=== PATIENT | female | born 1965 | race Caucasian/White ===

== ENCOUNTER 2017-07-20 19:01 | Inpatient (IN) | payer OTHER, MEDICARE ==
[~2017-07-20] VITALS: Ht 167.6 cm; Wt 81.4 kg
[~2017-07-20 19:01] MED LIST: DEXAMETHASONE SOD PHOS 4 MG/ML VIAL IV ONE; LIDOCAINE HCL 1% PF 5 ML SYRINGE OTHER ONE; ONDANSETRON HCL 4 MG/2 ML VIAL IV ONE; PHENYLEPH/NS 1000 MCG/10 ML SYR IV ONE; PROPOFOL 200 MG/20 ML AMP IV ONE; ceFAZolin INJ 1,000 MG VIAL IV ONE; ePHEDrine/NS 25 MG/5 ML SYRINGE IV ONE
[2017-07-20 19:19] VITALS: BP 151/95; PULSE 86; RESP 18; TEMP 98.1; O2SAT 94; O2SAT 98
--- NOTE | 2017-07-20 19:36 | PD ---
HPI Chief Complaint: Fall Time Seen by Provider: 19:17 Travel History International Travel<30 days: No Contact w/Intl Traveler<30days: No Traveled to known affect area: No History of Present Illness HPI The patient is a 52 year old female who presents to the [facility] emergency department with a history of falling prior to arrival. The patient reports that this is the second day that she has fallen. 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 She reports that she normally ambulates with the use of a walker, however yesterday she did not have her walker and fell when she was near her vehicle. She reports that her legs just gave out on her. She reports that she fell backwards onto her bottom and then her back rolling and hitting the back of her head. She reports that she had a headache this morning, however it has resolved. She reports having neck pain. She denies having any chest pain or shortness of breath. The patient reports that today she again had her legs give out on her when she was walking to the bathroom. She reports that she was not using her walker again. She reports that she twisted her right ankle and now has deformity and pain. The patient also has left second toe pain. The patient reports that she was not able to ambulate on her ankle after the fall. According to ambulance services, the patient had a drop in her O2 saturation in route to this facility after having morphine for pain administered. The patient also began to feel nauseated was given Zofran 4 mg IV. In total the patient received morphine 6 mg IV. The patient reports the pain was a 7 out of 10 in severity initially and now is down to 1-2 out of 10 in severity. On review of systems otherwise, the patient denies having any new weakness to her extremities. She denies having any numbness or tingling to her extremities. She does report having neck pain since falling yesterday. The cervical collar was placed on the patient on her arrival to this facility. On review of systems otherwise, the patient denies having any recent fevers, cough, congestion, chest pain, shortness of breath, abdominal pain, vomiting, diarrhea, urinary symptoms, or new neurologic symptoms. LMP: Reportedly a few years ago. [facility] Past Medical History Narrative Medical The patient's past medical history is significant for having myotonic dystrophy , history of being prediabetic, history of cervical cancer. Diminished Hearing: No Musculoskeletal: Yes (MUSCULAR DYSTROPHY) Immunizations Current: Yes Tetanus Vaccination: > 5 Years ?: Not Menopausal: Yes Dilation and Curettage (D&C): Yes Past Surgical History Narrative Surgical The patient's past surgical history is significant for D&C, eyelid lift, cyst removal from her eye, cataract surgery, cervical surgery related to cervical cancer, appendectomy. Appendectomy: Yes Eye Surgery: Yes (CYSTS REMOVED FROM RT EYE THREE TIMES) Gynecologic Surgery: Yes (D&C) Social History Alcohol Use: No Tobacco Use: No Substance Use: No Allergies-Medications (Allergen,Severity, Reaction): Coded Allergies: No Known Allergies (Verified Allergy, Unknown, 07/20/17) Reported Meds & Prescriptions Reported Meds & Active Scripts Active No Active Prescriptions or Reported Medications Review of Systems Except as stated in HPI: all other systems reviewed are Neg General / Constitutional: No: Fever Eyes: No: Visual changes HENT: Positive: Headaches, Neck Pain, No: Rhinitis, Congestion, Neck Stiffness Cardiovascular: No: Chest Pain or Discomfort, Dyspnea on exertion Respiratory: No: Shortness of Breath Gastrointestinal: No: Abdominal Pain Genitourinary: No: Dysuria Musculoskeletal: Positive: Myalgias, Arthralgias, Limited ROM, Edema, Pain Skin: No Rash Neurologic: Positive: Headache, No: Weakness, Focal Abnormalities, Change in Mentation, Slurred Speech, Sensory Disturbance Psychiatric: No: Depression Endocrine: No: Polydipsia Hematologic/Lymphatic: No: Easy Bruising Physical Exam Narrative General: The patient is a well-developed well-nourished female in no acute distress. The patient on arrival on room air is noted to have desaturation down to 89-90% . The patient was placed on 2 L nasal cannula O2. The patient is asymptomatic with this. Head and Neck exam: Head is normocephalic atraumatic. Eyes: EOMI, pupils are equal round and reactive to light. Nose: Midline septum with pink mucous membranes Mouth: Dentition unremarkable. Moist mucus membranes. Posterior oropharynx is not erythematous. No tonsillar hypertrophy. Uvula midline. Airway patent. Neck: No palpable lymphadenopathy. No nuchal rigidity. No thyromegaly. The patient reports having spinous process tenderness to palpation along the mid cervical spine. The patient also has paraspinal cervical muscle tenderness on palpation. The patient's placed in a cervical collar. There is no step-off or crepitus. Trachea is midline. Cardiovascular: Regular rate and rhythm without murmurs, gallops, or rubs. Lungs: Clear to auscultation bilaterally. No wheezes, rhonchi, or rales. Abdomen: Soft, without tenderness to palpation in all 4 quadrants of the abdomen. No guarding, rebound, or rigidity. Normal bowel sounds are audible. No tenderness on palpation of McBurney's point. Extremities: No clubbing or cyanosis. The patient does have edema noted to the right ankle with tenderness on palpation is most prominent along the medial aspect of the ankle and medial malleolus. The patient also has tenderness on palpation along the mid foot over the metatarsals. The patient on examination of the left foot is noted to have ecchymosis of the second toe. There is tenderness on palpation associated with this. 2+ pulses in all 4 extremities. The patient has less than 3 second capillary refill of her digits. Intact sensation over her toes. Back: No spinous process tenderness to palpation. The patient reports left-sided CVA tenderness on palpation. Neurologic Exam: Grossly nonfocal. Skin Exam: No rash noted. Intact skin that is warm and dry. Data Data Last Documented VS Vital Signs Date Time Temp Pulse Resp B/P (MAP) Pulse Ox O2 Delivery O2 Flow Rate FiO2 07/20/17 19:19 98.1 86 18 151/95 (113) 94 Nasal Cannula 2.00 Orders Orders Electrocardiogram (07/20/17 19:28) Complete Blood Count With Diff (07/20/17 19:28) Comprehensive Metabolic Panel (07/20/17 19:28) Creatine Kinase (Cpk) (07/20/17 19:28) Ckmb (Isoenzyme) Profile (07/20/17 19:28) Troponin I (07/20/17 19:28) B-Type Natriuretic Peptide (07/20/17 19:28) Prothrombin Time / Inr (Pt) (07/20/17 19:28) Act Partial Throm Time (Ptt) (07/20/17 19:28) Lipase (07/20/17 19:28) Urinalysis - C+S If Indicated (07/20/17 19:28) Magnesium (Mg) (07/20/17 19:28) Chest, Single Ap (07/20/17 19:28) Ct Brain W/O Iv Contrast(Rout) (07/20/17 19:28) Pelvis, Ap Only (Routine) (07/20/17 19:28) Iv Access Insert/Monitor (07/20/17 19:28) Ecg Monitoring (07/20/17 19:28) Oximetry (07/20/17 19:28) Ankle, Complete ([id number]) (07/20/17 19:28) Foot, Limited (2vws) (07/20/17 19:28) Foot, Complete ([id number]) (07/20/17 19:28) Ct Cerv Spine W/O Contrast (07/20/17 19:28) Ct Pulmonary Angiogram (07/20/17 19:28) CKMB (07/20/17 19:45) CKMB% (07/20/17 19:45) Splint Or Brace Apply/Monitor (07/20/17 21:04) Iohexol 350 Inj (Omnipaque 350 Inj) (07/20/17 21:55) Admit Order (Ed Use Only) (07/20/17 22:05) Labs Laboratory Tests Test 07/20/17 19:45 White Blood Count 11.1 TH/MM3 Red Blood Count 4.98 MIL/MM3 Hemoglobin 15.7 GM/DL Hematocrit 47.0 % Mean Corpuscular Volume 94.5 FL Mean Corpuscular Hemoglobin 31.6 PG Mean Corpuscular Hemoglobin Concent 33.4 % Red Cell Distribution Width 13.5 % Platelet Count 254 TH/MM3 Mean Platelet Volume 7.3 FL Neutrophils (%) (Auto) 77.6 % Lymphocytes (%) (Auto) 14.1 % Monocytes (%) (Auto) 6.9 % Eosinophils (%) (Auto) 1.0 % Basophils (%) (Auto) 0.4 % Neutrophils # (Auto) 8.6 TH/MM3 Lymphocytes # (Auto) 1.6 TH/MM3 Monocytes # (Auto) 0.8 TH/MM3 Eosinophils # (Auto) 0.1 TH/MM3 Basophils # (Auto) 0.0 TH/MM3 CBC Comment DIFF FINAL Differential Comment Prothrombin Time 10.2 SEC Prothromb Time International Ratio 1.0 RATIO Activated Partial Thromboplast Time 22.4 SEC Urine Color LIGHT-YELLOW Urine Turbidity CLEAR Urine pH 6.5 Urine Specific [place] 1.007 Urine Protein NEG mg/dL Urine Glucose (UA) NEG mg/dL Urine Ketones NEG mg/dL Urine Occult Blood NEG Urine Nitrite NEG Urine Bilirubin NEG Urine Urobilinogen LESS THAN 2.0 MG/DL Urine Leukocyte Esterase TRACE Urine RBC LESS THAN 1 /hpf Urine WBC 3 /hpf Urine Mucus FEW /lpf Microscopic Urinalysis Comment CULT NOT INDICATED Blood Urea Nitrogen 13 MG/DL Creatinine 0.90 MG/DL Random Glucose 127 MG/DL Total Protein 7.2 GM/DL Albumin 3.5 GM/DL Calcium Level 9.0 MG/DL Magnesium Level 2.3 MG/DL Alkaline Phosphatase 139 U/L Aspartate Amino Transf (AST/SGOT) 53 U/L Alanine Aminotransferase (ALT/SGPT) 78 U/L Total Bilirubin 0.4 MG/DL Sodium Level 144 MEQ/L Potassium Level 4.3 MEQ/L Chloride Level 113 MEQ/L Carbon Dioxide Level 21.8 MEQ/L Anion Gap 9 MEQ/L Estimat Glomerular Filtration Rate 66 ML/MIN Total Creatine Kinase 122 U/L Creatine Kinase MB 6.0 NG/ML Troponin I LESS THAN 0.02 NG/ML B-Type Natriuretic Peptide 12 PG/ML Lipase 132 U/L [facility] Medical Decision Making Medical Screen Exam Complete: Yes Emergency Medical Condition: Yes Medical Record Reviewed: Yes Interpretation(s) Last Impressions Pelvis X-Ray 07/20/171927 Signed Impressions: Service Date/Time: June 19:56 - CONCLUSION: Unremarkable examination of the pelvis. Renato De Jesus MD Head CT 07/20/171927 Signed Impressions: Service Date/Time: June 21:41 - CONCLUSION: No acute intracranial injury Renato De Jesus MD Foot X-Ray 07/20/171927 Signed Impressions: Service Date/Time: June 20:04 - CONCLUSION: Ankle fracture. No evidence of acute bony injury in the foot Renato De Jesus MD Foot X-Ray 07/20/171927 Signed Impressions: Service Date/Time: June 20:04 - CONCLUSION: Left third through fifth toe fractures as described. Renato De Jesus MD Chest X-Ray 07/20/171927 Signed Impressions: Service Date/Time: June 19:54 - CONCLUSION: Diminished lung volumes. Renato De Jesus MD Cervical Spine CT 07/20/171927 Signed Impressions: Service Date/Time: June 21:41 - CONCLUSION: No acute bony injury in the cervical spine. Renato De Jesus MD CT Angiography 07/20/171927 Signed Impressions: Service Date/Time: June 21:45 - CONCLUSION: No evidence of pulmonary embolism Renato De Jesus MD Ankle X-Ray 07/20/171927 Signed Impressions: Service Date/Time: June 20:01 - CONCLUSION: Mildly displaced trimalleolar right ankle fracture Renato De Jesus MD Differential Diagnosis Intracranial hemorrhage, versus cervical spine injury, versus right ankle fracture, versus sprain, versus dislocation. Regarding the patient's hypoxemia on room air, differential diagnosis includes respiratory depression related to morphine use, versus pulmonary embolism, versus acute coronary syndrome, versus pneumonia, versus new-onset congestive heart failure Narrative Course During the course of the patients emergency department visit, the patients history, examination, and differential diagnosis were reviewed with the patient. The patient was placed on a hemodialysis rn with oximetry and frequent blood pressure monitoring. The patient had IV access obtained and blood work sent for analysis. The patient had an ECG done on arrival. The patient's ECG reveals a sinus rhythm heart rate of 86, no acute ST segment elevation, T waves are inverted in V1, V2. QRS duration is 95 ms, QTC 423 ms. The patient was provided morphine in total 6 mg IV for pain prior to arrival, pain level was minimal on arrival. The patients laboratory studies were reviewed and remarkable for a white count of 11.1, hemoglobin 15.7, platelets 254 with 77.6 neutrophils, CMP is remarkable for chloride of 113, glucose 127, AST 53, ALT 78, alkaline phosphatase 139, CPK 122, troponin I less than 0.02, BNP 12, lipase 132. PT 10.2, PTT 22.4, urinalysis shows trace of the site esterase, culture not indicated. Radiology studies were reviewed and remarkable for an x-ray of the left foot that showed left third through fifth toe digit fractures, right ankle x-ray reveals a trimalleolar fracture. A chest x-ray showed diminished lung volumes, otherwise unremarkable. Pelvis x-ray showed no acute abnormality. CTA to rule out PE given the patient's hypoxemia on room air on arrival was negative for pulmonary embolism. CT scan of the head and C-spine shows no acute abnormality. Given the patient's negative CTA with the patient's hypoxemia on room air, the patient's hypoxemia is likely related to respiratory depression from morphine administration prior to arrival with a possible component of decreased respiratory effort from myotonic dystrophy. The patients results were discussed with the patient, including the plan of care. I explained that further testing and/ or monitoring is indicated based on the patients history, examination, and/ or laboratory findings. Therefore, I recommended admission for additional evaluation. The patient expressed understanding and was agreeable with this plan. The patient was admitted to the hospital in stable condition and sent to a bed under the care of the [facility] service. Physician Communication Physician Communication The patient's case including history, pertinent physical examination findings, and laboratory studies were discussed with Dr. Loja. It was agreed that the patient would be admitted to the [facility] service. Diagnosis Primary Impression: Closed right trimalleolar fracture Qualified Codes: S82.851A - Displaced trimalleolar fracture of right lower leg , initial encounter for closed fracture Additional Impression: Toes fractured Qualified Codes: S92.912A - Unspecified fracture of left toe(s), initial encounter for closed fracture Admitting Information Admitting Physician Requests: Admit Scripts No Active Prescriptions or Reported Meds Disposition: [address] [facility] ENFORCEM[employer] Neda Chandra MD Jul 20, 2017 19:36
[2017-07-20 20:05] LABS: AUTOMATED NEUTROPHIL # 8.6 TH/MM3 (1.8-7.7); BASOPHIL % 0.4 % (0.0-2.0); EOSINOPHIL # 0.1 TH/MM3 (0-0.4); HEMOGLOBIN 15.7 GM/DL (11.6-15.3); LYMPH % 14.1 % (9.0-44.0); LYMPHOCYTE # 1.6 TH/MM3 (1.0-4.8); MEAN CELL VOLUME 94.5 FL (80.0-100.0); MEAN CORPUSCULAR HEMOGLOBIN 31.6 PG (27.0-34.0); MEAN CORPUSCULAR HGB CONC 33.4 % (32.0-36.0); MEAN PLATELET VOLUME 7.3 FL (7.0-11.0); MONO % 6.9 % (0.0-8.0); MONOCYTE # 0.8 TH/MM3 (0-0.9); NEUT % 77.6 % (16.0-70.0); PLATELET COUNT 254 TH/MM3 (150-450); RED BLOOD COUNT 4.98 MIL/MM3 (4.00-5.30); RED CELL DISTRIBUTION WIDTH 13.5 % (11.6-17.2); WHITE BLOOD COUNT 11.1 TH/MM3 (4.0-11.0)
[2017-07-20 20:13] LABS: PROTHROMBIN TIME - PATIENT 10.2 SEC (9.8-11.6)
[2017-07-20 20:25] LABS: ALT (GPT) 78 U/L (10-53)
[2017-07-20 20:29] LABS: ALKALINE PHOSPHATASE 139 U/L (45-117); TOTAL BILIRUBIN ADULT 0.4 MG/DL (0.2-1.0); TOTAL PROTEIN 7.2 GM/DL (6.4-8.2); TROPONIN I LESS THAN 0.02 NG/ML (0.02-0.05)
--- NOTE | 2017-07-20 20:29 | RADRPT ---
EXAM DATE/TIME: 07/20/2017 19:54 [facility] COMPARISON: CHEST SINGLE AP, March 29, 2012, 15:21. INDICATIONS : Evaluate chest for trauma, fell MEDICAL HISTORY : None. SURGICAL HISTORY : None. ENCOUNTER: Initial ACUITY: 1 day PAIN SCORE: 0/10 LOCATION: chest FINDINGS: Lung volumes are diminished. There is mild basilar parenchymal opacity may be atelectasis. No evidenc e of pneumothorax. Visualized cardiac contours are satisfactory. CONCLUSION: Diminished lung volumes. Renato De Jesus MD on July 20, 2017 at 20:26 Board Certified Radiologist. This report was verified electronically.
[2017-07-20 20:30] LABS: ALBUMIN 3.5 GM/DL (3.4-5.0); AST (GOT) 53 U/L (15-37); BICARBONATE 21.8 MEQ/L (21.0-32.0); BLOOD UREA NITROGEN 13 MG/DL (7-18); CHLORIDE 113 MEQ/L (98-107); GLOMERULAR FILTRATION RATE 66 ML/MIN (>89); GLUCOSE,RANDOM 127 MG/DL (74-106); LIPASE 132 U/L (73-393); MAGNESIUM 2.3 MG/DL (1.5-2.5); SODIUM (NA) 144 MEQ/L (136-145)
--- NOTE | 2017-07-20 20:36 | RADRPT ---
EXAM DATE/TIME: 07/20/2017 19:56 [facility] COMPARISON: No previous studies available for comparison. INDICATIONS : Evaluate for trauma, fell MEDICAL HISTORY : None. SURGICAL HISTORY : None. ENCOUNTER: Initial ACUITY: 1 day PAIN SCORE: 0/10 LOCATION: Pelvis FINDINGS: A single frontal view of the pelvis demonstrates no evidence of fracture. The bony pelvic ring is in tact. Bony mineralization is normal. The soft tissues are intact. CONCLUSION: Unremarkable examination of the pelvis. Renato De Jesus MD on July 20, 2017 at 20:34 Board Certified Radiologist. This report was verified electronically.
--- NOTE | 2017-07-20 20:39 | RADRPT ---
EXAM DATE/TIME: 07/20/2017 20:01 [facility] COMPARISON: No previous studies available for comparison. INDICATIONS : Right ankle pain, fell MEDICAL HISTORY : Arthritis. SURGICAL HISTORY : None. ENCOUNTER: Initial ACUITY: 1 day PAIN SCORE: 8/10 LOCATION: Right Ankle FINDINGS: Trimalleolar right ankle fracture is present with minimally displaced fractures of the medial and pos terior malleolar and an oblique fracture of the distal fibula extending down to the distal tibiofibul ar joint. There slight widening of the medial ankle mortise. The hindfoot is grossly intact. CONCLUSION: Mildly displaced trimalleolar right ankle fracture Renato De Jesus MD on July 20, 2017 at 20:36 Board Certified Radiologist. This report was verified electronically.
--- NOTE | 2017-07-20 20:40 | RADRPT ---
EXAM DATE/TIME: 07/20/2017 20:04 [facility] COMPARISON: No previous studies available for comparison. INDICATIONS : Right proximal foot pain, fell MEDICAL HISTORY : Arthritis. SURGICAL HISTORY : None. ENCOUNTER: Initial ACUITY: 1 day PAIN SCORE: 08/02 LOCATION: Right Foot FINDINGS: Three view examination of the right foot demonstrates no soft tissue swelling, dislocation, or fractu re. The tarsal bones appear intact. The interphalangeal and metatarsophalangeal joints are intact. The calcaneus is intact. Bony mineralization is normal. Trimalleolar right ankle fracture is noted . CONCLUSION: Ankle fracture. No evidence of acute bony injury in the foot Renato De Jesus MD on July 20, 2017 at 20:37 Board Certified Radiologist. This report was verified electronically.
--- NOTE | 2017-07-20 20:42 | RADRPT ---
EXAM DATE/TIME: 07/20/2017 20:04 [facility] COMPARISON: No previous studies available for comparison. INDICATIONS : Left distal foot pain, fell MEDICAL HISTORY : Arthritis. SURGICAL HISTORY : None. ENCOUNTER: Initial ACUITY: 1 day PAIN SCORE: 4/10 LOCATION: Left Foot FINDINGS: There are mildly angulated transverse fractures involving the proximal aspect of the fourth and fifth toe proximal phalanges with slight lateral angulation of the dominant distal fragments. The fracture involving the fifth toe appears to extend obliquely into the metatarsophalangeal joint. It appears t o be a minimally displaced fracture involving the distal aspect of the third toe proximal phalanx wit h cortical disruption seen laterally in the metaphyseal region. There is mild osteoporosis and degene rative change. CONCLUSION: Left third through fifth toe fractures as described. Renato De Jesus MD on July 20, 2017 at 20:38 Board Certified Radiologist. This report was verified electronically.
[2017-07-20 20:45] LABS: BILIRUBIN, URINE NEG (NEG); BLOOD, URINE NEG (NEG); GLUCOSE,URINE NEG (NEG); KETONE, URINE NEG (NEG); MUCUS URINE FEW /lpf (OCC); NITRITE,URINE NEG (NEG); PH, URINE 6.5 (5.0-8.5); URINE COLOR LIGHT-YELLOW (YELLW/STRAW); URINE LEUKOCYTE ESTERASE TRACE (NEG)
[2017-07-20] MEDS ORDERED: IOHEXOL 350 MG/ML 10 ML VIAL (for RAD DIAG) IVCONTRAST ONE (21:55)
--- NOTE | 2017-07-20 22:08 | RADRPT ---
EXAM DATE/TIME: 07/20/2017 21:45 [facility] COMPARISON: CHEST SINGLE AP, July 20, 2017, 19:54. INDICATIONS : Trauma, fall. Low O2 sats. IV CONTRAST: 75 cc Omnipaque 350 (iohexol) IV RADIATION DOSE: 22.47 CTDIvol (mGy) MEDICAL HISTORY : Musuclar dystrophy. SURGICAL HISTORY : None. ENCOUNTER: Initial ACUITY: 1 day PAIN SCALE: 5/10 LOCATION: chest TECHNIQUE: Volumetric scanning of the chest was performed using a pulmonary embolism protocol MIP images were re constructed. Using automated exposure control and adjustment of the mA and/or kV according to patien t size, radiation dose was kept as low as reasonably achievable to obtain optimal diagnostic quality images. DICOM format image data is available electronically for review and comparison. Follow-up recommendations for detected pulmonary nodules are based at a minimum on nodule size and pa tient risk factors according to Fleischner Society Guidelines. FINDINGS: PULMONARY ARTERIES: No filling defects are seen in the pulmonary arteries through the segmental level. LUNGS: Mild bibasilar atelectasis. Symmetrically diminished lung volumes. PLEURAE: There is no pleural thickening or pleural effusion. MEDIASTINUM: There is good visualization of the great vessels of the middle mediastinum. No evidence of mediastin al or hilar adenopathy/mass. MUSCULOSKELETAL: Within normal limits for patient age. MISCELLANEOUS: The visualized upper abdominal organs demonstrate no acute abnormality. CONCLUSION: No evidence of pulmonary embolism Renato De Jesus MD on July 20, 2017 at 22:04 Board Certified Radiologist. This report was verified electronically.
--- NOTE | 2017-07-20 22:21 | RADRPT ---
EXAM DATE/TIME: 07/20/2017 21:41 [facility] COMPARISON: No previous studies available for comparison. INDICATIONS : Trauma, fall. RADIATION DOSE: 54.89 CTDIvol (mGy) ; Tabletop CT Head MEDICAL HISTORY : Muscular dytrophy. SURGICAL HISTORY : None. ENCOUNTER: Initial ACUITY: 1 day PAIN SCALE: 0/10 LOCATION: cranial TECHNIQUE: Multiple contiguous axial images were obtained of the head. Using automated exposure control and adj ustment of the mA and/or kV according to patient size, radiation dose was kept as low as reasonably a chievable to obtain optimal diagnostic quality images. DICOM format image data is available electro nically for review and comparison. FINDINGS: CEREBRUM: The ventricles are normal for age. No evidence of midline shift, mass lesion, hemorrhage or acute in farction. No extra-axial fluid collections are seen. POSTERIOR FOSSA: The cerebellum and brainstem are intact. The 4th ventricle is midline. The cerebellopontine angle i s unremarkable. EXTRACRANIAL: The visualized portion of the orbits is intact. SKULL: The calvaria is intact. No evidence of skull fracture. CONCLUSION: No acute intracranial injury Renato De Jesus MD on July 20, 2017 at 22:19 Board Certified Radiologist. This report was verified electronically.
--- NOTE | 2017-07-20 22:21 | HHI.HP ---
[facility] Unknown Admission Diagnosis right trimalleolar fx, left foot 3-5th digit fxs Diagnoses: (1) Fall Diagnosis: Principal (2) Ankle fracture, right Diagnosis: Principal (3) Toes fractured Diagnosis: Principal (4) Muscular dystrophy Diagnosis: Principal (5) Leukocytosis Diagnosis: Principal Travel History International Travel<30 Days: No Contact w/Intl Traveler <30 Da: No Traveled to Known Affected Are: No History of Present Illness This is a 52-year-old female with a PMH of Muscular Dystrophy and Cervical CA who is brought to the ER by EMS secondary to right ankle pain after a fall. Pt states she was walking to the bathroom when her legs gave out, subsequent fall w / immediate complaints of right ankle pain, 8/10, constant, worse w/ movement. Also notes left toe pain. No head trauma or LOC reported. Normally ambulates with walker, however states she didn't use it this time. On arrival, BP 151/95 , HR 86, O2 sat 94% on 2L NC, Afebrile. WBC 11.1. GFR 66, previously 90 on 03/29. LFTs elevated, similar comparison to previous labs. Troponin negative. INR 1.0. UA negative. Ankle X-ray with mildly displaced trimalleolar right ankle fracture. CTA Pulm negative for PE. CT C-spine negative. CXR diminished lung volumes. Foot X-ray with left third through fifth toe fractures. Foot X-ray with ankle fracture. CT Head no acute findings. Pelvis X-ray unremarkable. Review of Systems Except as stated in HPI: all other systems reviewed are Neg ROS: 14 point review of systems otherwise negative. Past Family Social History Past Medical History PMH: Muscular Dystrophy and Cervical CA Past Surgical History PAST SURGICAL HISTORY: D&C, Cyst Removal Right Eye, Cataract Surgery, Appendectomy Allergies: Coded Allergies: No Known Allergies (Verified Allergy, Unknown, 07/20/17) Family History PAST FAMILY HISTORY: Reviewed. No h/o DM or CAD Social History PAST SOCIAL HISTORY: Negative for alcohol, tobacco or drugs. Physical Exam Vital Signs Vital Signs Date Time Temp Pulse Resp B/P (MAP) Pulse Ox O2 Delivery O2 Flow Rate FiO2 07/20/17 19:19 98.1 86 18 151/95 (113) 94 Nasal Cannula 2.00 Physical Exam PE: GENERAL: Pleasant middle-aged female in no acute distress. HEENT: PERRLA, EOMI. No scleral icterus or conjunctival pallor. No lid lag or facial droop. CARDIOVASCULAR: Regular rate and rhythm. No obvious murmurs to auscultation. No chest tenderness to palpation. RESPIRATORY: No obvious rhonchi or wheezing. Clear to auscultation. Breath sounds equal bilaterally. GASTROINTESTINAL: Abdomen soft, non-tender, nondistended. BS normal. MUSCULOSKELETAL: Extremities without clubbing, cyanosis, or edema. No obvious deformities. Decreased ROM of RLE due to injury. Left foot, +bruising second toe. Pulses intact NEUROLOGICAL: Awake, alert and oriented x4. No focal neurologic deficits. Moving both upper and lower extremities spontaneously. Laboratory Laboratory Tests Test 07/20/17 19:45 White Blood Count 11.1 Red Blood Count 4.98 Hemoglobin 15.7 Hematocrit 47.0 Mean Corpuscular Volume 94.5 Mean Corpuscular Hemoglobin 31.6 Mean Corpuscular Hemoglobin Concent 33.4 Red Cell Distribution Width 13.5 Platelet Count 254 Mean Platelet Volume 7.3 Neutrophils (%) (Auto) 77.6 Lymphocytes (%) (Auto) 14.1 Monocytes (%) (Auto) 6.9 Eosinophils (%) (Auto) 1.0 Basophils (%) (Auto) 0.4 Neutrophils # (Auto) 8.6 Lymphocytes # (Auto) 1.6 Monocytes # (Auto) 0.8 Eosinophils # (Auto) 0.1 Basophils # (Auto) 0.0 CBC Comment DIFF FINAL Differential Comment Prothrombin Time 10.2 Prothromb Time International Ratio 1.0 Activated Partial Thromboplast Time 22.4 Urine Color LIGHT-YELLOW Urine Turbidity CLEAR Urine pH 6.5 Urine Specific [place] 1.007 Urine Protein NEG Urine Glucose (UA) NEG Urine Ketones NEG Urine Occult Blood NEG Urine Nitrite NEG Urine Bilirubin NEG Urine Urobilinogen LESS THAN 2.0 Urine Leukocyte Esterase TRACE Urine RBC LESS THAN 1 Urine WBC 3 Urine Mucus FEW Microscopic Urinalysis Comment CULT NOT INDICATED Blood Urea Nitrogen 13 Creatinine 0.90 Random Glucose 127 Total Protein 7.2 Albumin 3.5 Calcium Level 9.0 Magnesium Level 2.3 Alkaline Phosphatase 139 Aspartate Amino Transf (AST/SGOT) 53 Alanine Aminotransferase (ALT/SGPT) 78 Total Bilirubin 0.4 Sodium Level 144 Potassium Level 4.3 Chloride Level 113 Carbon Dioxide Level 21.8 Anion Gap 9 Estimat Glomerular Filtration Rate 66 Total Creatine Kinase 122 Creatine Kinase MB 6.0 Troponin I LESS THAN 0.02 B-Type Natriuretic Peptide 12 Lipase 132 Result Diagram: 07/20/17194407/20/171944 Caprini VTE Risk Assessment Caprini VTE Risk Assessment: Mod/High Risk (score >= 2) Caprini Risk Assessment Model Point Value = 1 Point Value = 2 Point Value = 3 Point Value = 5 Age 41-60 Minor surgery BMI > 25 kg/m2 Swollen legs Varicose veins or History of unexplained or recurrent spontaneous Oral contraceptives or hormone replacement Sepsis (< 1 month) Serious lung disease, including pneumonia (< 1 month) Abnormal pulmonary function Acute myocardial infarction Congestive heart failure (< 1 month) History of inflammatory bowel disease Medical patient at bed rest Age 61-74 Arthroscopic surgery Major open surgery (> 45 min) Laparoscopic surgery (> 45 min) Malignancy Confined to bed (> 72 hours) Immobilizing plaster cast Central venous access Age >= 75 History of VTE Family history of VTE Factor V Leiden Prothrombin [id number] Lupus anticoagulant Anticardiolipin antibodies Elevated serum homocysteine Heparin-induced thrombocytopenia Other congenital or acquired thrombophilia Stroke (< 1 month) Elective arthroplasty Hip, pelvis, or leg fracture Acute spinal cord injury (< 1 month) Prophylaxis Regimen Total Risk Factor Score Risk Level Prophylaxis Regimen 0-1 Low Early ambulation 2 Moderate Order ONE of the following: *Sequential Compression Device (SCD) *Heparin 5000 units SQ BID 3-4 Higher Order ONE of the following medications: *Heparin 5000 units SQ TID *Enoxaparin/Lovenox 40 mg SQ daily (WT < 150 kg, CrCl > 30 mL/min) *Enoxaparin/Lovenox 30 mg SQ daily (WT < 150 kg, CrCl > 10-29 mL/min) *Enoxaparin/Lovenox 30 mg SQ BID (WT < 150 kg, CrCl > 30 mL/min) AND/OR *Sequential Compression Device (SCD) 5 or more Highest Order ONE of the following medications: *Heparin 5000 units SQ TID (Preferred with Epidurals) *Enoxaparin/Lovenox 40 mg SQ daily (WT < 150 kg, CrCl > 30 mL/min) *Enoxaparin/Lovenox 30 mg SQ daily (WT < 150 kg, CrCl > 10-29 mL/min) *Enoxaparin/Lovenox 30 mg SQ BID (WT < 150 kg, CrCl > 30 mL/min) AND *Sequential Compression Device (SCD) Assessment and Plan Problem List: (1) Fall ICD Code: W19.XXXA - Unspecified fall, initial encounter (2) Ankle fracture, right ICD Code: S82.891A - Other fracture of right lower leg, initial encounter for closed fracture (3) Toes fractured ICD Code: S92.919A - Unspecified fracture of unspecified toe(s), initial encounter for closed fracture (4) Muscular dystrophy ICD Code: G71.0 - Muscular dystrophy (5) Leukocytosis ICD Code: D72.829 - Elevated white blood cell count, unspecified Assessment and Plan A/P: 1. Fall: s/p mechanical fall while walking to bathroom, not using walker. No LOC or head trauma reported. CT Head/C-Spine w/ no acute findings, images reviewed by me. 2. Muscular Dystrophy: difficulty w/ ambulation, chronic, uses walker at baseline. Analgesics/antispasmodics as needed, PT for eval/tx. 3. Right Ankle Fx: secondary to fall. Foot x-ray w/ trimalleolar ankle fracture, images reviewed by me. Will Consult Ortho for further eval and surgical intervention. NPO, IVF, analgesics as needed. 4. Toe Fx: Left 3-5th toe fractures on X-ray, images reviewed by me. Ortho/ Podiatry eval. 5. DVT Prophylaxis: Anticoagulation post op 6. Social work for d/c planning as needed. 7. Labs/imaging reviewed by me, case discussed w/ ER physician at length. Physician Certification 2 Midnight Certification Type: Admission for Inpatient Services Order for Inpatient Services The services are ordered in accordance with Medicare regulations or non- Medicare payer requirements, as applicable. In the case of services not specified as inpatient-only, they are appropriately provided as inpatient services in accordance with the 2-midnight benchmark. Estimated LOS (days): 2 days is the estimated time the patient will need to remain in the hospital, assuming treatment plan goals are met and no additional complications. Post-Hospital Plan: Not yet determined Citlaly Loja MD Jul 20, 2017 22:21
--- NOTE | 2017-07-20 22:23 | RADRPT ---
EXAM DATE/TIME: 07/20/2017 21:41 [facility] COMPARISON: CT PULMONARY ANGIOGRAM, July 20, 2017, 21:45. INDICATIONS : Trauma, fall. RADIATION DOSE: 20.97 CTDIvol (mGy) MEDICAL HISTORY : Muscular dystrophy SURGICAL HISTORY : None. ENCOUNTER: Initial ACUITY: 1 day PAIN SCALE: 5/10 LOCATION: neck TECHNIQUE: Volumetric scanning of the cervical spine was performed. Multiplanar reconstructions i n the sagittal, coronal and oblique axial planes were performed. Using automated exposure control a nd adjustment of the mA and/or kV according to patient size, radiation dose was kept as low as reason ably achievable to obtain optimal diagnostic quality images. DICOM format image data is available e lectronically for review and comparison. FINDINGS: The alignment is normal. There is no evidence of cervical spine fracture. No bony canal or foraminal stenosis is identified. There is no evidence of paraspinal hematoma. CONCLUSION: No acute bony injury in the cervical spine. Renato De Jesus MD on July 20, 2017 at 22:19 Board Certified Radiologist. This report was verified electronically.
[2017-07-20] MEDS ORDERED: SENNOSIDES 8.6 MG TAB PO PRN (22:30)
[2017-07-20] MEDS ORDERED: BISACODYL 10 MG SUPP RECTAL PRN (22:30)
[2017-07-20] MEDS ORDERED: ONDANSETRON HCL 4 MG/2 ML VIAL IVP PRN (22:30)
[2017-07-20] MEDS ORDERED: MORPHINE SULFATE 2 MG/ML INJ IV PUSH PRN (22:30)
[2017-07-20] MEDS ORDERED: SODIUM CHLORIDE 0.9% FLUSH 10 ML FLUSH IV FLUSH PRN (22:30)
[2017-07-20] MEDS ORDERED: ACETAMINOPHEN 325 MG TAB PO PRN (22:30)
[2017-07-20] MEDS ORDERED: MAGNESIUM HYDROXIDE SUSP 30 ML CUP PO PRN (22:30)
[2017-07-20] MEDS ORDERED: LACTULOSE SYRUP 20 GM/30 ML CUP PO PRN (22:30)
[2017-07-20] MEDS: SODIUM CHLOR 0.9% 1000 ML INJ 1,000 ML IV SCH (22:49)
[2017-07-20] MEDS ORDERED: METOPROLOL TARTRATE 25 MG TAB PO PRN (23:15)
[2017-07-20] MEDS ORDERED: LACTATED RINGER'S 1000 ML IV PRN (23:15)
[2017-07-20] MEDS ORDERED: POVIDONE IODINE 5% (ANTISEPSIS KIT) 4 APPLICATIONS EACH NARE PRN (23:15)
[2017-07-20] MEDS ORDERED: CHLORHEXIDINE GLUCONATE 2 % 1 PACK (2 CLOTHS) TOPICAL PRN (23:15)
[2017-07-20] MEDS ORDERED: SODIUM CHLORID 0.9% 500 ML IV PRN (23:15)
[2017-07-20] MEDS: ACETAMINOPHEN/HYDROcodone 325 MG/5 MG TAB PO PRN (23:24)
[2017-07-21] VITALS (8 sets, daily range): BP systolic 103–139; BP diastolic 69–84; PULSE 70–93; RESP 16–20; TEMP 95.9–98; O2SAT 90–100
[2017-07-21] MEDS: ACETAMINOPHEN/HYDROcodone 325 MG/5 MG TAB PO PRN ×3 (04:08→11:59)
[2017-07-21 05:26] LABS: AUTOMATED NEUTROPHIL # 5.1 TH/MM3 (1.8-7.7); BASOPHIL % 0.5 % (0.0-2.0); EOSINOPHIL # 0.2 TH/MM3 (0-0.4); EOSINOPHIL % 1.8 % (0.0-4.0); HEMATOCRIT 43.9 % (35.0-46.0); HEMOGLOBIN 14.4 GM/DL (11.6-15.3); LYMPH % 28.7 % (9.0-44.0); LYMPHOCYTE # 2.4 TH/MM3 (1.0-4.8); MEAN CELL VOLUME 95.8 FL (80.0-100.0); MEAN CORPUSCULAR HEMOGLOBIN 31.3 PG (27.0-34.0); MEAN CORPUSCULAR HGB CONC 32.7 % (32.0-36.0); MEAN PLATELET VOLUME 7.4 FL (7.0-11.0); MONOCYTE # 0.8 TH/MM3 (0-0.9); PLATELET COUNT 237 TH/MM3 (150-450); RED BLOOD COUNT 4.59 MIL/MM3 (4.00-5.30); RED CELL DISTRIBUTION WIDTH 13.8 % (11.6-17.2); WHITE BLOOD COUNT 8.5 TH/MM3 (4.0-11.0)
[2017-07-21 05:44] LABS: ALBUMIN 3.3 GM/DL (3.4-5.0); ALT (GPT) 65 U/L (10-53); AST (GOT) 34 U/L (15-37); BICARBONATE 29.6 MEQ/L (21.0-32.0); BLOOD UREA NITROGEN 15 MG/DL (7-18); CALCIUM 8.7 MG/DL (8.5-10.1); CHLORIDE 110 MEQ/L (98-107); CREATININE 0.69 MG/DL (0.50-1.00); GLOMERULAR FILTRATION RATE 89 ML/MIN (>89); GLUCOSE,RANDOM 102 MG/DL (74-106); SODIUM (NA) 146 MEQ/L (136-145)
[2017-07-21 05:45] LABS: ALKALINE PHOSPHATASE 123 U/L (45-117); TOTAL BILIRUBIN ADULT 0.4 MG/DL (0.2-1.0); TOTAL PROTEIN 6.7 GM/DL (6.4-8.2)
[2017-07-21] MEDS: SODIUM CHLORIDE 0.9% FLUSH 10 ML FLUSH IV FLUSH SCH ×2 (07:36→21:00)
[2017-07-21] MEDS: SODIUM CHLOR 0.9% 1000 ML INJ 1,000 ML IV SCH (07:50)
--- NOTE | 2017-07-21 07:55 | PD.CONS ---
HPI Service Orthopedic Surgeons Consult Requested By Medical staff Reason for Consult Fracture of right ankle Primary Care Physician Unknown Admission Diagnosis right trimalleolar fx, left foot 3-5th digit fxs Diagnoses: (1) Fall (2) Ankle fracture, right (3) Toes fractured (4) Muscular dystrophy (5) Leukocytosis Chief Complaint: Right ankle pain and left forefoot pain History of Present Illness This patient is a 52-year-old female with a known history of myotonic muscular dystrophy. The patient normally endplates with a walker or a wheelchair. She fell in her bathroom at home. There was no loss of consciousness. She had immediate pain and deformity of the right ankle and pain in the forefoot of her left foot. She was brought by E back to [facility]. X-rays showed evidence of a mildly displaced right bimalleolar ankle fracture and evidence of left forefoot third fourth and fifth toe fractures. I have been asked to the patient in consultation regarding her orthopedic injuries. Past Family Social History Past Medical History PMH: Muscular Dystrophy and Cervical CA Past Surgical History PAST SURGICAL HISTORY: D&C, Cyst Removal Right Eye, Cataract Surgery, Appendectomy Allergies: Coded Allergies: No Known Allergies (Verified Allergy, Unknown, 07/20/17) Active Ordered Medications Current Medications Medications (Trade) Dose Ordered Sig/Eric Route Start Time Stop Time Status Last Admin Sodium Chloride 1,000 ml @ 100 mls/hr Q10H IV 07/20/17 22:19 07/21/17 07:50 (NS Flush) 2 ml UNSCH PRN IV FLUSH 07/20/17 22:30 (NS Flush) 2 ml BID IV FLUSH 07/21/17 09:00 (Zofran Inj) 4 mg Q6H PRN IVP 07/20/17 22:30 (Tylenol) 650 mg Q6H PRN PO 07/20/17 22:30 ([place] 5-325 Mg) 1 tab Q4H PRN PO 07/20/17 22:30 07/21/17 07:36 (Morphine Inj) 2 mg Q3H PRN IV PUSH 07/20/17 22:30 (Snehal-Colace) 1 tab BID PO 07/21/17 09:00 (Milk Of Magnesia Liq) 30 ml Q12H PRN PO 07/20/17 22:30 (Senokot) 17.2 mg Q12H PRN PO 07/20/17 22:30 (Dulcolax Supp) 10 mg DAILY PRN RECTAL 07/20/17 22:30 (Lactulose Liq) 30 ml DAILY PRN PO 07/20/17 22:30 Lactated Ringer's 1,000 ml @ 30 mls/hr Q24H PRN IV 07/20/17 23:15 07/23/17 23:14 Sodium Chloride 500 ml @ 30 mls/hr [id number] PRN IV 07/20/17 23:15 07/23/17 23:14 (Lopressor) 25 mg ENAMEL BUFFER PRN PO 07/20/17 23:15 07/23/17 23:14 (Betadine 5% Antisepsis Kit) 1 applic ENAMEL BUFFER PRN EACH NARE 07/20/17 23:15 07/23/17 23:14 (Chlorhexidine 2% Cloth) 3 pack ENAMEL BUFFER PRN TOPICAL 07/20/17 23:15 07/23/17 23:14 Reported Meds & Active Scripts Active No Active Prescriptions or Reported Medications Family History PAST FAMILY HISTORY: Reviewed. No h/o DM or CAD Social History PAST SOCIAL HISTORY: Negative for alcohol, tobacco or drugs. Physical Exam Vital Signs Vital Signs Date Time Temp Pulse Resp B/P (MAP) Pulse Ox O2 Delivery O2 Flow Rate FiO2 07/21/17 07:36 95.9 87 17 116/76 (89) 91 07/21/17 07:34 Nasal Cannula 2.00 07/21/17 04:00 96.3 70 16 103/71 (82) 95 07/21/17 00:00 97.1 82 18 139/84 (102) 96 07/20/17 23:26 96 Nasal Cannula 2.00 07/20/17 22:52 07/20/17 19:19 98.1 86 18 151/95 (113) 94 Nasal Cannula 2.00 Physical Exam HEENT: Normocephalic atraumatic pupils equal round reactive. NECK: Supple. No abnormal masses. Full range of motion. CHEST: Clear to auscultation with no rales or rhonchi's or wheezes. HEART: Regular rate and rhythm. No murmurs. ABDOMEN: Soft, nontender, no masses. Normal active bowel sounds. GENITOURINARY: Deferred MUSCULOSKELETAL: She is in a short leg splint on the right. Mild swelling is seen. Toes are warm. Cap refill is satisfactory. Sensation is normal. No blistering. Left forefoot is in a rigid bottom shoe. Ecchymosis and swelling of the lateral 3 digits are noted. Sensation is normal. Laboratory Laboratory Tests Test 07/20/17 19:45 07/21/17 04:18 White Blood Count 11.1 8.5 Red Blood Count 4.98 4.59 Hemoglobin 15.7 14.4 Hematocrit 47.0 43.9 Mean Corpuscular Volume 94.5 95.8 Mean Corpuscular Hemoglobin 31.6 31.3 Mean Corpuscular Hemoglobin Concent 33.4 32.7 Red Cell Distribution Width 13.5 13.8 Platelet Count 254 237 Mean Platelet Volume 7.3 7.4 Neutrophils (%) (Auto) 77.6 60.0 Lymphocytes (%) (Auto) 14.1 28.7 Monocytes (%) (Auto) 6.9 9.0 Eosinophils (%) (Auto) 1.0 1.8 Basophils (%) (Auto) 0.4 0.5 Neutrophils # (Auto) 8.6 5.1 Lymphocytes # (Auto) 1.6 2.4 Monocytes # (Auto) 0.8 0.8 Eosinophils # (Auto) 0.1 0.2 Basophils # (Auto) 0.0 0.0 CBC Comment DIFF FINAL DIFF FINAL Differential Comment Prothrombin Time 10.2 Prothromb Time International Ratio 1.0 Activated Partial Thromboplast Time 22.4 Urine Color LIGHT-YELLOW Urine Turbidity CLEAR Urine pH 6.5 Urine Specific [place] 1.007 Urine Protein NEG Urine Glucose (UA) NEG Urine Ketones NEG Urine Occult Blood NEG Urine Nitrite NEG Urine Bilirubin NEG Urine Urobilinogen LESS THAN 2.0 Urine Leukocyte Esterase TRACE Urine RBC LESS THAN 1 Urine WBC 3 Urine Mucus FEW Microscopic Urinalysis Comment CULT NOT INDICATED Blood Urea Nitrogen 13 15 Creatinine 0.90 0.69 Random Glucose 127 102 Total Protein 7.2 6.7 Albumin 3.5 3.3 Calcium Level 9.0 8.7 Magnesium Level 2.3 Alkaline Phosphatase 139 123 Aspartate Amino Transf (AST/SGOT) 53 34 Alanine Aminotransferase (ALT/SGPT) 78 65 Total Bilirubin 0.4 0.4 Sodium Level 144 146 Potassium Level 4.3 4.3 Chloride Level 113 110 Carbon Dioxide Level 21.8 29.6 Anion Gap 9 6 Estimat Glomerular Filtration Rate 66 89 Total Creatine Kinase 122 Creatine Kinase MB 6.0 Troponin I LESS THAN 0.02 B-Type Natriuretic Peptide 12 Lipase 132 Result Diagram: 07/21/17 0418 07/21/17 0418 Imaging X-rays reviewed and review of radiologist interpretation of the right ankle shows evidence of a trimalleolar fracture of the right ankle with no significant posterior malleolar displacement and mild displacement of the medial and lateral malleolus with lateral malleolar comminution. Significant osteopenia is noted for patient's age of 52. X-rays of the left forefoot and reviewed the radiologist's interpretation shows evidence of nondisplaced fracture proximal phalanx left third fourth and fifth toes. Osteopenia is noted. Assessment & Plan Assessment and Plan Fracture right ankle, trimalleolar. Fracture left forefoot, proximal phalanx third, fourth, fifth toe. PLAN: Open treatment of distal fixation fracture with plates and screws. Consent: There are risks with surgery including infection, bleeding, loss of motion, need for further surgery, loss of fixation. The patient understands she needs to be nonweightbearing for approximately 8 weeks. With her underlying medical condition, this may be difficult and she is at greater risk than normal of displacement of the fractures. We will anticipate tentative surgery later today if time is available in the operating room Nonoperative treatment of her left forefoot condition. Possible transfer to home versus [facility]ent[facility] facility Zak Jones MD Jul 21, 2017 07:55
[2017-07-21] MEDS ORDERED: DOCUSATE SODIUM 50 MG/SENNA 8.6 MG TAB PO SCH (09:00)
[2017-07-21] MEDS ORDERED: GENTAMICIN SULFATE 80 MG/2 ML VIAL ONE (09:55)
--- NOTE | 2017-07-21 11:58 | HHI.PR ---
Subjective Remarks Pt states her pain is controlled as long as she doesn't move her ankle. nausea earlier but none now. no chest pain or SOB. Objective Vitals Vital Signs Date Time Temp Pulse Resp B/P (MAP) Pulse Ox O2 Delivery O2 Flow Rate FiO2 07/21/17 07:36 95.9 87 17 116/76 (89) 91 07/21/17 07:34 Nasal Cannula 2.00 07/21/17 04:00 96.3 70 16 103/71 (82) 95 07/21/17 00:00 97.1 82 18 139/84 (102) 96 07/20/17 23:26 96 Nasal Cannula 2.00 07/20/17 22:52 07/20/17 19:19 98.1 86 18 151/95 (113) 94 Nasal Cannula 2.00 I/O 07/20/17 07/20/17 07/20/17 07/21/17 07/21/17 07/21/17 07:00 15:00 23:00 07:00 15:00 23:00 Intake Total 0 ml Balance 0 ml Intake Oral 0 ml # Voids 1 # Bowel Movements 0 Result Diagram: 07/21/178 07/21/17 0418 Imaging Last Impressions Pelvis X-Ray 07/20/171927 Signed Impressions: Service Date/Time: June 19:56 - CONCLUSION: Unremarkable examination of the pelvis. Renato De Jesus MD Head CT 07/20/171927 Signed Impressions: Service Date/Time: June 21:41 - CONCLUSION: No acute intracranial injury Renato De Jesus MD Foot X-Ray 07/20/171927 Signed Impressions: Service Date/Time: June 20:04 - CONCLUSION: Ankle fracture. No evidence of acute bony injury in the foot Renato De Jesus MD Chest X-Ray 07/20/171927 Signed Impressions: Service Date/Time: June 19:54 - CONCLUSION: Diminished lung volumes. Renato De Jesus MD Cervical Spine CT 07/20/171927 Signed Impressions: Service Date/Time: June 21:41 - CONCLUSION: No acute bony injury in the cervical spine. Renato De Jesus MD CT Angiography 07/20/171927 Signed Impressions: Service Date/Time: June 21:45 - CONCLUSION: No evidence of pulmonary embolism Renato De Jesus MD Ankle X-Ray 07/20/171927 Signed Impressions: Service Date/Time: June 20:01 - CONCLUSION: Mildly displaced trimalleolar right ankle fracture Renato De Jesus MD Objective Remarks GENERAL: Pleasant middle-aged female in no acute distress. HEENT: EOMI. CARDIOVASCULAR: Regular rate and rhythm. RESPIRATORY: No wheezing. Clear to auscultation. Breath sounds equal bilaterally. GASTROINTESTINAL: Abdomen soft, non-tender, nondistended. BS normal. MUSCULOSKELETAL: decrease ROM of lower extremities secondary to pain. NEUROLOGICAL: Awake and alert. moves upper extremities w no difficulties A/P Problem List: (1) Fall ICD Code: W19.XXXA - Unspecified fall, initial encounter (2) Ankle fracture, right ICD Code: S82.891A - Other fracture of right lower leg, initial encounter for closed fracture (3) Toes fractured ICD Code: S92.919A - Unspecified fracture of unspecified toe(s), initial encounter for closed fracture (4) Muscular dystrophy ICD Code: G71.0 - Muscular dystrophy (5) Leukocytosis ICD Code: D72.829 - Elevated white blood cell count, unspecified Assessment and Plan 1. Fall: s/p mechanical fall while walking to bathroom, not using walker. No LOC or head trauma reported. CT Head/C-Spine w/ no acute findings 2. Muscular Dystrophy: difficulty w/ ambulation, chronic, uses walker at baseline. Analgesics/antispasmodics as needed, PT for eval/tx. 3. Right Ankle Fx: secondary to fall. Foot x-ray w/ trimalleolar ankle fracture. Ortho has been consulted and pt is scheduled for sx today. NPO, IVF, analgesics as needed. 4. Toe Fx: Left 3-5th toe fractures on X-ray. Nonoperative treatment of her left forefoot condition per Ortho. 5. Hypernatremia: mild, monitor 6. DVT Prophylaxis: Anticoagulation post op per ortho sx Discharge Planning OR today Swati Waters MD Jul 21, 2017 11:57
[2017-07-21] MEDS ORDERED: SUGAMMADEX SODIUM 200 MG/2 ML VIAL IV PUSH ONE (14:49)
[2017-07-21] MEDS: LACTATED RINGER'S 1000 ML INJ 1,000 ML IV SCH (15:04)
--- NOTE | 2017-07-21 15:10 | PD.ORT.PN ---
Subjective Subjective Remarks Postop day #0 for right ankle ORIF Objective Vitals Vital Signs Date Time Temp Pulse Resp B/P (MAP) Pulse Ox O2 Delivery O2 Flow Rate FiO2 07/21/17 13:36 Nasal Cannula 3.00 07/21/17 12:02 90 Nasal Cannula 2.00 07/21/17 12:02 96.7 85 18 105/69 (81) 90 07/21/17 07:36 95.9 87 17 116/76 (89) 91 07/21/17 07:34 Nasal Cannula 2.00 07/21/17 04:00 96.3 70 16 103/71 (82) 95 07/21/17 00:00 97.1 82 18 139/84 (102) 96 07/20/17 23:26 96 Nasal Cannula 2.00 07/20/17 22:52 07/20/17 19:19 98.1 86 18 151/95 (113) 94 Nasal Cannula 2.00 I/O 07/20/17 07/20/17 07/20/17 07/21/17 07/21/17 07/21/17 07:00 15:00 23:00 07:00 15:00 23:00 Intake Total 0 ml Balance 0 ml Intake Oral 0 ml # Voids 1 # Bowel Movements 0 Result Diagram: 07/21/17 0418 07/21/17417 Other Results Laboratory Tests Test 07/20/17 19:45 Prothromb Time International Ratio 1.0 RATIO Prothrombin Time 10.2 SEC (9.8-11.6) Imaging Last 24 hours Impressions Pelvis X-Ray 07/20/171927 Signed Impressions: Service Date/Time: June 19:56 - CONCLUSION: Unremarkable examination of the pelvis. Renato De Jesus MD Head CT 07/20/171927 Signed Impressions: Service Date/Time: June 21:41 - CONCLUSION: No acute intracranial injury Renato De Jesus MD Foot X-Ray 07/20/171927 Signed Impressions: Service Date/Time: June 20:04 - CONCLUSION: Ankle fracture. No evidence of acute bony injury in the foot Reanto De Jesus MD Foot X-Ray 07/20/171927 Signed Impressions: Service Date/Time: June 20:04 - CONCLUSION: Left third through fifth toe fractures as described. Renato De Jesus MD Chest X-Ray 07/20/171927 Signed Impressions: Service Date/Time: June 19:54 - CONCLUSION: Diminished lung volumes. Renato De Jesus MD Cervical Spine CT 07/20/171927 Signed Impressions: Service Date/Time: June 21:41 - CONCLUSION: No acute bony injury in the cervical spine. Renato De Jesus MD CT Angiography 07/20/171927 Signed Impressions: Service Date/Time: June 21:45 - CONCLUSION: No evidence of pulmonary embolism Renato De Jesus MD Ankle X-Ray 07/20/171927 Signed Impressions: Service Date/Time: June 20:01 - CONCLUSION: Mildly displaced trimalleolar right ankle fracture Renato De Jesus MD Assessment & Plan Assessment and Plan Fracture right ankle, trimalleolar. Fracture left forefoot, proximal phalanx third, fourth, fifth toe. Surgery: ORIF right ankle with lateral malleolar plate and screws and medial malleolus cannulated screws PLAN: Discharge to home when medically clear. Aspirin 81 mg twice a day for 30 days for DVT chemical prophylaxis. [employer] 7.5 for pain medications. Preoperative muscular dystrophy leads to preoperative significant weakness. Nonweightbearing right leg after surgery. She will likely be in a wheelchair which he already has. No dressing changes and leave and current dressing/splint. Follow-up in 3 weeks Zak Jones MD Jul 21, 2017 15:10
[2017-07-21] MEDS ORDERED: HYDR-3580 PO (15:12)
[2017-07-21] MEDS ORDERED: ASPI81 CHEW (15:12)
--- NOTE | 2017-07-21 15:14 | EKG ---
Date Performed: 07/20/2017 Time Performed: 20:25:27 PTAGE: 52 years EKG: Sinus rhythm LOW QRS VOLTAGE IN PRECORDIAL LEADS NONSPECIFIC T-WAVE ABNORMALITY Since previous tracing, no signif icant change noted BORDERLINE ECG PREVIOUS TRACING : 06/30/2016 13.56.51 DOCTOR: Herbert Menon Interpretating Date/Time 07/21/2017 15:12:53
[2017-07-21] MEDS ORDERED: ONDANSETRON HCL 4 MG/2 ML VIAL IVP PRN (15:15)
[2017-07-21] MEDS ORDERED: NALOXONE HCL 0.4 MG/ML AMP IV PUSH PRN (15:15)
[2017-07-21] MEDS ORDERED: diphenhydrAMINE HCL 25 MG CAP PO PRN (15:15)
[2017-07-21] MEDS ORDERED: Post-op Orders (for Pharmacy) XX ONE (15:15)
[2017-07-21] MEDS ORDERED: ASPIRIN 81 MG CHEW TAB CHEW ONE (15:15)
[2017-07-21] MEDS ORDERED: MAGNESIUM HYDROXIDE SUSP 30 ML CUP PO PRN (15:15)
[2017-07-21] MEDS ORDERED: ceFAZolin INJ 1,000 MG VIAL IV ONE (15:36)
[2017-07-21] MEDS ORDERED: MORPHINE SULFATE 30 MG/30 ML PCA IV SCH (17:00)
[2017-07-21] MEDS ORDERED: ASPIRIN 81 MG CHEW TAB CHEW SCH (17:00)
[2017-07-21] MEDS ORDERED: DO NOT ADM ANY ANTICOAGULANT DRUGS PRN (17:20)
--- NOTE | 2017-07-21 17:48 | RADRPT ---
EXAM DATE/TIME: 07/21/2017 16:22 [facility] COMPARISON: No previous studies available for comparison. INDICATIONS : Open reduction internal fixation of right ankle fracture MEDICAL HISTORY : None. SURGICAL HISTORY : None. ENCOUNTER: Initial ACUITY: 1 day PAIN SCORE: Non-responsive. LOCATION: Right ankle FINDINGS: 3 fluoroscopic images of the right ankle. Interval plate and screw fixation of the distal fibula with compression screw fixation of the medial malleolus. Hardware appears intact and well-positioned. The re is near-anatomic alignment. No new bony fractures. CONCLUSION: 1. Status post right ankle ORIF, as above. Souleymane Escalante MD on July 21, 2017 at 17:45 Board Certified Radiologist. This report was verified electronically.
[2017-07-21] MEDS: CALCIUM/VITAMIN D 250 MG/125 U TAB PO SCH (18:00)
[2017-07-21] MEDS ORDERED: *morphine SULFATE 8 MG/ML PERIprocedure ONLY ONE (18:07)
[2017-07-21] MEDS: DOCUSATE SODIUM 50 MG/SENNA 8.6 MG TAB PO SCH (21:14)
[2017-07-21] MEDS: ASPIRIN 81 MG CHEW TAB CHEW SCH (21:14)
[2017-07-21] MEDS: PCA - TOTAL MG MORPHINE DELIVERED PER SHIFT SCH (22:00)
[2017-07-22] VITALS (7 sets, daily range): BP systolic 102–129; BP diastolic 59–77; PULSE 77–109; RESP 17–19; TEMP 96.7–98.3; O2SAT 90–100
[2017-07-22] MEDS: LACTATED RINGER'S 1000 ML INJ 1,000 ML IV SCH ×3 (01:29→20:49)
[2017-07-22] MEDS: ACETAMINOPHEN/HYDROcodone 325 MG/7.5 MG TAB PO PRN ×4 (03:33→18:09)
[2017-07-22] MEDS: PCA - TOTAL MG MORPHINE DELIVERED PER SHIFT SCH ×4 (06:00→23:31)
[2017-07-22 08:24] LABS: HEMATOCRIT 40.2 % (35.0-46.0); HEMOGLOBIN 13.1 GM/DL (11.6-15.3)
--- NOTE | 2017-07-22 08:55 | PD.ORT.PN ---
Subjective Post Op Day #: 1 Subjective Remarks pain tolerable Objective Vitals Vital Signs Date Time Temp Pulse Resp B/P (MAP) Pulse Ox O2 Delivery O2 Flow Rate FiO2 07/22/17 08:51 Room Air 07/22/17 07:58 98.0 97 19 120/61 (80) 94 07/22/17 06:00 18 07/22/17 04:00 98.3 91 18 119/72 (88) 95 07/22/17 00:00 97.6 103 18 129/68 (88) 90 07/21/17 22:00 17 07/21/17 20:32 94 Nasal Cannula 3.00 07/21/17 20:00 94 Nasal Cannula 3.00 07/21/17 20:00 98.0 93 20 107/69 (82) 94 07/21/17 19:02 16 07/21/17 18:45 78 16 95 Nasal Cannula 3 07/21/17 18:30 78 16 102/57 (72) 94 Nasal Cannula 3 07/21/17 18:15 80 16 106/66 (79) 95 Simple Mask 6 07/21/17 18:10 100 BiPAP 50 07/21/17 18:00 78 16 110/66 (81) 94 Bi-Pap 50 07/21/17 17:50 16 98 Bi-Pap 50 07/21/17 17:45 80 16 113/64 (80) 98 Bi-Pap 100 07/21/17 17:30 88 16 112/63 (79) 94 Bi-Pap 100 07/21/17 17:20 94 75 07/21/17 17:20 98.3 92 16 107/58 (74) 89 Bi-Pap 100 07/21/17 13:36 Nasal Cannula 3.00 07/21/17 12:02 90 Nasal Cannula 2.00 07/21/17 12:02 96.7 85 18 105/69 (81) 90 I/O 07/21/17 07/21/17 07/21/17 07/22/17 07/22/17 07/22/17 07:00 15:00 23:00 07:00 15:00 23:00 Intake Total 0 ml 0 ml 1180 ml 1520 ml Output Total 10 ml Balance 0 ml 0 ml 1170 ml 1520 ml Intake Oral 0 ml 0 ml 480 ml 240 ml IV Total 1280 ml Other 700 ml Output Estimated Blood Loss 10 ml # Voids 1 2 1 2 # Bowel Movements 0 0 0 0 Result Diagram: 07/22/17 0755 07/21/17 0418 Imaging Last 24 hours Impressions Pelvis X-Ray 07/20/171927 Signed Impressions: Service Date/Time: June 19:56 - CONCLUSION: Unremarkable examination of the pelvis. Renato De Jesus MD Head CT 07/20/171927 Signed Impressions: Service Date/Time: June 21:41 - CONCLUSION: No acute intracranial injury Renato De Jesus MD Foot X-Ray 07/20/171927 Signed Impressions: Service Date/Time: June 20:04 - CONCLUSION: Ankle fracture. No evidence of acute bony injury in the foot Renato De Jesus MD Foot X-Ray 07/20/171927 Signed Impressions: Service Date/Time: June 20:04 - CONCLUSION: Left third through fifth toe fractures as described. Renato De Jesus MD Chest X-Ray 07/20/171927 Signed Impressions: Service Date/Time: June 19:54 - CONCLUSION: Diminished lung volumes. Renato De Jesus MD Cervical Spine CT 07/20/171927 Signed Impressions: Service Date/Time: June 21:41 - CONCLUSION: No acute bony injury in the cervical spine. Renato De Jesus MD CT Angiography 07/20/171927 Signed Impressions: Service Date/Time: June 21:45 - CONCLUSION: No evidence of pulmonary embolism Renato De Jesus MD Ankle X-Ray 07/20/171927 Signed Impressions: Service Date/Time: June 20:01 - CONCLUSION: Mildly displaced trimalleolar right ankle fracture Renato De Jesus MD Objective Remarks in bed, nad splint RLE intact, cap refill, nvi L foot ecchymosis, nvi, mild swelling Assessment & Plan Ortho Post Op Day #: 1 Problem List: Assessment and Plan Fracture right ankle, trimalleolar. Fracture left forefoot, proximal phalanx third, fourth, fifth toe. Surgery: ORIF right ankle with lateral malleolar plate and screws and medial malleolus cannulated screws PLAN: Ortho stable, Discharge to home when medically clear. Aspirin 81 mg twice a day for 30 days for DVT chemical prophylaxis. [place] 7.5 for pain medications. NWB RLE, protected WB with post-op shoe LLE Preoperative muscular dystrophy leads to preoperative significant weakness. Nonweightbearing right leg after surgery. She will likely be in a wheelchair which he already has. No dressing changes and leave and current dressing/splint. Follow-up in 3 weeks Matteo Salazar Jul 22, 2017 08:55
[2017-07-22] MEDS: SODIUM CHLORIDE 0.9% FLUSH 10 ML FLUSH IV FLUSH SCH ×2 (09:00→20:13)
[2017-07-22 09:03] LABS: CALCIUM 9.1 MG/DL (8.5-10.1); CREATININE 0.63 MG/DL (0.50-1.00)
[2017-07-22] MEDS: MULTIVITAMINS/MINERALS THERAPEUTIC TAB PO SCH (09:17)
[2017-07-22] MEDS: ASPIRIN 81 MG CHEW TAB CHEW SCH ×2 (09:17→20:12)
[2017-07-22] MEDS: CALCIUM/VITAMIN D 250 MG/125 U TAB PO SCH ×3 (09:18→15:38)
[2017-07-22] MEDS: DOCUSATE SODIUM 50 MG/SENNA 8.6 MG TAB PO SCH ×2 (09:18→20:12)
--- NOTE | 2017-07-22 09:54 | HHI.PR ---
Subjective Remarks Pt feels a little nauseous but doesn't want any meds at this time. states that she took morphine last night and slept ( per RN, pt required narcan last night) . Pt not comfortable going home today. would like to stay one more day. complains of some pain on the right foot Objective Vitals Vital Signs Date Time Temp Pulse Resp B/P (MAP) Pulse Ox O2 Delivery O2 Flow Rate FiO2 07/22/17 09:21 Room Air 07/22/17 08:51 Room Air 07/22/17 07:58 98.0 97 19 120/61 (80) 94 07/22/17 06:00 18 07/22/17 04:00 98.3 91 18 119/72 (88) 95 07/22/17 00:00 97.6 103 18 129/68 (88) 90 07/21/17 22:00 17 07/21/17 20:32 94 Nasal Cannula 3.00 07/21/17 20:00 94 Nasal Cannula 3.00 07/21/17 20:00 98.0 93 20 107/69 (82) 94 07/21/17 19:02 16 07/21/17 18:45 78 16 95 Nasal Cannula 3 07/21/17 18:30 78 16 102/57 (72) 94 Nasal Cannula 3 07/21/17 18:15 80 16 106/66 (79) 95 Simple Mask 6 07/21/17 18:10 100 BiPAP 50 07/21/17 18:00 78 16 110/66 (81) 94 Bi-Pap 50 07/21/17 17:50 16 98 Bi-Pap 50 07/21/17 17:45 80 16 113/64 (80) 98 Bi-Pap 100 07/21/17 17:30 88 16 112/63 (79) 94 Bi-Pap 100 07/21/17 17:20 94 75 07/21/17 17:20 98.3 92 16 107/58 (74) 89 Bi-Pap 100 07/21/17 13:36 Nasal Cannula 3.00 07/21/17 12:02 90 Nasal Cannula 2.00 07/21/17 12:02 96.7 85 18 105/69 (81) 90 I/O 07/21/17 07/21/17 07/21/17 07/22/17 07/22/17 07/22/17 07:00 15:00 23:00 07:00 15:00 23:00 Intake Total 0 ml 0 ml 1180 ml 1520 ml Output Total 10 ml Balance 0 ml 0 ml 1170 ml 1520 ml Intake Oral 0 ml 0 ml 480 ml 240 ml IV Total 1280 ml Other 700 ml Output Estimated Blood Loss 10 ml # Voids 1 2 1 2 # Bowel Movements 0 0 0 0 Result Diagram: 07/22/17 0755 07/22/17 0755 Imaging Last Impressions Ankle X-Ray 07/21/17 0000 Signed Impressions: Service Date/Time: Friday, July 21, 2017 16:22 - CONCLUSION: 1. Status post right ankle ORIF, as above. Souleymane Escalante MD Pelvis X-Ray 07/20/171927 Signed Impressions: Service Date/Time: June 19:56 - CONCLUSION: Unremarkable examination of the pelvis. Renato De Jesus MD Head CT 07/20/171927 Signed Impressions: Service Date/Time: June 21:41 - CONCLUSION: No acute intracranial injury Renato De Jesus MD Foot X-Ray 07/20/171927 Signed Impressions: Service Date/Time: June 20:04 - CONCLUSION: Ankle fracture. No evidence of acute bony injury in the foot Renato De Jesus MD Chest X-Ray 07/20/171927 Signed Impressions: Service Date/Time: June 19:54 - CONCLUSION: Diminished lung volumes. Rneato De Jesus MD Cervical Spine CT 07/20/171927 Signed Impressions: Service Date/Time: June 21:41 - CONCLUSION: No acute bony injury in the cervical spine. Renato De Jesus MD CT Angiography 07/20/171927 Signed Impressions: Service Date/Time: June 21:45 - CONCLUSION: No evidence of pulmonary embolism Renato De Jesus MD Objective Remarks GENERAL: Pleasant middle-aged female in no acute distress. HEENT: EOMI. CARDIOVASCULAR: Regular rate and rhythm. RESPIRATORY: No wheezing. Clear to auscultation. Breath sounds equal bilaterally. GASTROINTESTINAL: Abdomen soft, non-tender, nondistended. BS normal. MUSCULOSKELETAL: dressing on the right lower extremity, ortho shoe on the right. NEUROLOGICAL: Awake and alert. moves upper extremities w no difficulties A/P Problem List: (1) Fall ICD Code: W19.XXXA - Unspecified fall, initial encounter (2) Ankle fracture, right ICD Code: S82.891A - Other fracture of right lower leg, initial encounter for closed fracture (3) Toes fractured ICD Code: S92.919A - Unspecified fracture of unspecified toe(s), initial encounter for closed fracture (4) Muscular dystrophy ICD Code: G71.0 - Muscular dystrophy (5) Leukocytosis ICD Code: D72.829 - Elevated white blood cell count, unspecified Assessment and Plan 1. Fall: s/p mechanical fall while walking to bathroom, not using walker. No LOC or head trauma reported. CT Head/C-Spine w/ no acute findings 2. Muscular Dystrophy: difficulty w/ ambulation, chronic, uses walker at baseline. Analgesics/antispasmodics as needed, avoid IV pain meds and see how pt does w just po in anticipation for discharge. PT for eval/tx. 3. Right Ankle Fx: secondary to fall. Foot x-ray w/ trimalleolar ankle fracture. Ortho following and pt is s/p right ankle ORIF, NWB, f/u w Dr. Jones in 3 weeks. ASA 81 mg po BID for dvt proph, needs wheelchair. analgesics as needed. 4. Toe Fx: Left 3-5th toe fractures on X-ray. Nonoperative treatment of her left forefoot condition per Ortho. 5. Hypernatremia: resolved 6. Hyperkalemia: repeat K level and if elevated will give kayexalate dose 7. DVT Prophylaxis: Anticoagulation post op per ortho sx Discharge Planning anticipate discharge tomorrow Swati Waters MD Jul 22, 2017 9:54 am
--- NOTE | 2017-07-22 16:07 | HHI.FF ---
Face to Face Verification Diagnosis: (1) Ankle fracture, right Physical Therapy Order: Evaluate and Treat I have seen patient Lesley Brenner on 07/22/17. My clinical findings support the need for the requested home health care services because: s/p right ankle ORIF, NWB, High risk of falls I certify that my clinical findings support that this patient is homebound because: right ankle ORIF, NWB Unsteady gait/balance Swati Waters MD Jul 22, 2017 16:07
[2017-07-23] VITALS (7 sets, daily range): BP systolic 125–147; BP diastolic 73–84; PULSE 85–104; RESP 18–20; TEMP 96.5–98.5; O2SAT 89–99
[2017-07-23] MEDS: LACTATED RINGER'S 1000 ML INJ 1,000 ML IV SCH ×2 (06:24→17:08)
--- NOTE | 2017-07-23 07:26 | PD.ORT.PN ---
Subjective Subjective Remarks Patient resting, with this morning. No acute events. Objective Vitals Vital Signs Date Time Temp Pulse Resp B/P (MAP) Pulse Ox O2 Delivery O2 Flow Rate FiO2 07/23/17 04:05 98.1 91 18 142/81 (101) 90 07/22/17 23:27 96.7 109 18 115/77 (90) 100 07/22/17 21:51 Nasal Cannula 4.00 07/22/17 19:30 18 07/22/17 19:00 97.0 96 17 114/63 (80) 92 07/22/17 16:59 Nasal Cannula 4.00 07/22/17 15:39 92 Nasal Cannula 4.00 07/22/17 15:37 97.0 77 18 102/67 (79) 92 07/22/17 11:15 93 Nasal Cannula 4.00 07/22/17 11:12 98.3 82 18 102/59 (73) 92 07/22/17 09:21 Room Air 07/22/17 08:51 Room Air 07/22/17 07:58 98.0 97 19 120/61 (80) 94 I/O 07/22/17 07/22/17 07/22/17 07/23/17 07/23/17 07/23/17 07:00 15:00 23:00 07:00 15:00 23:00 Intake Total 1520 ml 900 ml 360 ml 460 ml Balance 1520 ml 900 ml 360 ml 460 ml Intake Oral 240 ml 900 ml 360 ml 360 ml IV Total 1280 ml 100 ml # Voids 2 2 2 2 # Bowel Movements 0 0 0 0 Result Diagram: 07/22/17 0755 07/22/17 1135 Imaging Last 24 hours Impressions Pelvis X-Ray 07/20/171927 Signed Impressions: Service Date/Time: June 19:56 - CONCLUSION: Unremarkable examination of the pelvis. Renato De Jesus MD Head CT 07/20/171927 Signed Impressions: Service Date/Time: June 21:41 - CONCLUSION: No acute intracranial injury Renato De Jesus MD Foot X-Ray 07/20/171927 Signed Impressions: Service Date/Time: June 20:04 - CONCLUSION: Ankle fracture. No evidence of acute bony injury in the foot Renato De Jesus MD Foot X-Ray 07/20/171927 Signed Impressions: Service Date/Time: June 20:04 - CONCLUSION: Left third through fifth toe fractures as described. Renato De Jesus MD Chest X-Ray 07/20/171927 Signed Impressions: Service Date/Time: June 19:54 - CONCLUSION: Diminished lung volumes. Renato De Jesus MD Cervical Spine CT 07/20/171927 Signed Impressions: Service Date/Time: June 21:41 - CONCLUSION: No acute bony injury in the cervical spine. Renato De Jesus MD CT Angiography 07/20/171927 Signed Impressions: Service Date/Time: June 21:45 - CONCLUSION: No evidence of pulmonary embolism Renato De Jesus MD Ankle X-Ray 07/20/171927 Signed Impressions: Service Date/Time: June 20:01 - CONCLUSION: Mildly displaced trimalleolar right ankle fracture Renato De Jesus MD Objective Remarks in bed, nad splint RLE intact, cap refill, nvi L foot ecchymosis, nvi, mild swelling Assessment & Plan Assessment and Plan Fracture right ankle, trimalleolar. Fracture left forefoot, proximal phalanx third, fourth, fifth toe. Surgery: ORIF right ankle with lateral malleolar plate and screws and medial malleolus cannulated screws PLAN: Ortho stable, Discharge to home when medically clear. Aspirin 81 mg twice a day for 30 days for DVT chemical prophylaxis. [place] 7.5 for pain medications. NWB RLE, protected WB with post-op shoe LLE Preoperative muscular dystrophy leads to preoperative significant weakness. Nonweightbearing right leg after surgery. She will likely be in a wheelchair which he already has. No dressing changes and leave and current dressing/splint. Follow-up in 3 weeks Arabella Velásquez MD Jul 23, 2017 07:26
[2017-07-23] MEDS: MULTIVITAMINS/MINERALS THERAPEUTIC TAB PO SCH (08:57)
[2017-07-23] MEDS: DOCUSATE SODIUM 50 MG/SENNA 8.6 MG TAB PO SCH ×2 (08:57→20:15)
[2017-07-23] MEDS: CALCIUM/VITAMIN D 250 MG/125 U TAB PO SCH ×3 (08:57→17:18)
[2017-07-23] MEDS: ASPIRIN 81 MG CHEW TAB CHEW SCH ×2 (08:58→20:14)
[2017-07-23] MEDS: SODIUM CHLORIDE 0.9% FLUSH 10 ML FLUSH IV FLUSH SCH ×2 (08:58→20:16)
--- NOTE | 2017-07-23 09:24 | HHI.PR ---
Subjective Remarks Pt tells me that she feels weak and her muscular dystrophy is acting up . She is not complaining of SOB however she is requiring more oxygen today per RN, up to 6L. no nausea or vomiting. Pt hasn't taken any pain meds today. Objective Vitals Vital Signs Date Time Temp Pulse Resp B/P (MAP) Pulse Ox O2 Delivery O2 Flow Rate FiO2 07/23/17 09:01 89 Nasal Cannula 6.00 07/23/17 04:05 98.1 91 18 142/81 (101) 90 07/22/17 23:27 96.7 109 18 115/77 (90) 100 07/22/17 21:51 Nasal Cannula 4.00 07/22/17 19:30 18 07/22/17 19:00 97.0 96 17 114/63 (80) 92 07/22/17 16:59 Nasal Cannula 4.00 07/22/17 15:39 92 Nasal Cannula 4.00 07/22/17 15:37 97.0 77 18 102/67 (79) 92 07/22/17 11:15 93 Nasal Cannula 4.00 07/22/17 11:12 98.3 82 18 102/59 (73) 92 I/O 07/22/17 07/22/17 07/22/17 07/23/17 07/23/17 07/23/17 06:59 14:59 22:59 06:59 14:59 22:59 Intake Total 1520 ml 900 ml 360 ml 460 ml Balance 1520 ml 900 ml 360 ml 460 ml Intake Oral 240 ml 900 ml 360 ml 360 ml IV Total 1280 ml 100 ml # Voids 2 2 2 2 # Bowel Movements 0 0 0 0 Result Diagram: 07/22/17 0755 07/22/17 1135 Imaging Last Impressions Chest X-Ray 07/23/17 0000 Signed Impressions: Service Date/Time: Sunday, July 23, 2017 09:32 - CONCLUSION: Elevated hemidiaphragms with suspected atelectasis or consolidation at the bases. Renato Silvestre MD Ankle X-Ray 07/21/17 0000 Signed Impressions: Service Date/Time: Friday, July 21, 2017 16:22 - CONCLUSION: 1. Status post right ankle ORIF, as above. Souleymane Escalante MD Pelvis X-Ray 12/28/17 1928 Signed Impressions: Service Date/Time: June 19:56 - CONCLUSION: Unremarkable examination of the pelvis. Renato De Jesus MD Head CT 07/20/171927 Signed Impressions: Service Date/Time: June 21:41 - CONCLUSION: No acute intracranial injury Renato De Jesus MD Foot X-Ray 07/20/171927 Signed Impressions: Service Date/Time: June 20:04 - CONCLUSION: Ankle fracture. No evidence of acute bony injury in the foot Renato De Jesus MD Cervical Spine CT 07/20/171927 Signed Impressions: Service Date/Time: June 21:41 - CONCLUSION: No acute bony injury in the cervical spine. Renato De Jesus MD CT Angiography 07/20/171927 Signed Impressions: Service Date/Time: June 21:45 - CONCLUSION: No evidence of pulmonary embolism Renato De Jesus MD Objective Remarks GENERAL: Pleasant middle-aged female, appears tired. HEENT: EOMI. CARDIOVASCULAR: Regular rate and rhythm. RESPIRATORY: decreased breath sounds. no obvious crackles or wheezing. GASTROINTESTINAL: Abdomen soft, non-tender, nondistended. BS normal. MUSCULOSKELETAL: dressing on the right lower extremity, ortho shoe on the right. NEUROLOGICAL: Awake and alert. moves upper extremities w no difficulties A/P Problem List: (1) Fall ICD Code: W19.XXXA - Unspecified fall, initial encounter (2) Ankle fracture, right ICD Code: S82.891A - Other fracture of right lower leg, initial encounter for closed fracture (3) Toes fractured ICD Code: S92.919A - Unspecified fracture of unspecified toe(s), initial encounter for closed fracture (4) Muscular dystrophy ICD Code: G71.0 - Muscular dystrophy (5) Leukocytosis ICD Code: D72.829 - Elevated white blood cell count, unspecified Assessment and Plan 1. Fall: s/p mechanical fall while walking to bathroom, not using walker. No LOC or head trauma reported. CT Head/C-Spine w/ no acute findings 2. Hypoxia: Pt is worsening, stat Chest x-ray ordered and concerning for atelectasis vs consolidation. Will start pt on levaquin for possible hospital acquired PNA. Encourage use of IS q1hr while awake. Stat ABG still pending. Monitor respiratory status closely. Will consult pulm 3. Muscular Dystrophy: difficulty w/ ambulation, chronic, uses walker at baseline. Analgesics/antispasmodics as needed, avoid IV pain meds and see how pt does w just po in anticipation for discharge. PT for eval/tx but today recommending rehab instead of home health and pt is agreeable. 4. Right Ankle Fx: secondary to fall. Foot x-ray w/ trimalleolar ankle fracture. Ortho following and pt is s/p right ankle ORIF, NWB, f/u w Dr. Jones in 3 weeks. ASA 81 mg po BID for dvt proph, needs wheelchair. analgesics as needed. 5. Toe Fx: Left 3-5th toe fractures on X-ray. Nonoperative treatment of her left forefoot condition per Ortho. 6. Hypernatremia: resolved 7. Hyperkalemia: resolved 8. DVT Prophylaxis: Anticoagulation post op per ortho sx Discharge Planning Pt will need to be discharge to rehab when medically more stable. f/u ABG results. pulm consult in place Swati Waters MD Jul 23, 2017 09:24
--- NOTE | 2017-07-23 09:51 | RADRPT ---
EXAM DATE/TIME: 07/23/2017 09:32 [facility] COMPARISON: CHEST SINGLE AP, July 20, 2017, 19:54. INDICATIONS : Chest pain for one day. MEDICAL HISTORY : None. SURGICAL HISTORY : Left ankle ORIF. ENCOUNTER: Initial ACUITY: 1 day PAIN SCORE: 0/10 LOCATION: Bilateral chest FINDINGS: The heart size appears normal. There is elevation of the hemidiaphragms bilaterally with low lung vol umes. Some degree of atelectasis or consolidation at the bases could be considered. The mid and upper lungs are clear. CONCLUSION: Elevated hemidiaphragms with suspected atelectasis or consolidation at the bases. Renato Silvestre MD on July 23, 2017 at 9:49 Board Certified Radiologist. This report was verified electronically.
[2017-07-23] MEDS: LEVOFLOXACIN 750 MG PREMIX INJ 150 ML IV SCH (10:44)
[2017-07-23] MEDS: ACETAMINOPHEN/HYDROcodone 325 MG/7.5 MG TAB PO PRN (10:49)
--- NOTE | 2017-07-23 12:24 | HHI.PR ---
Addendum to Inpatient Note Addendum Reason: Additional Documentation Additional Information I re-evaluated the patient and she currently states she has some trouble breathing because her nose is dry but feels comfortable. no nausea or vomiting. no chest pains. She is speaking in full sentences I did go over her code status and she wishes to be a full code in the event her resp status deteriorates. She would like to continue w the nasal cannula for now and avoid the BiPAP as she doesn't like it. ABG reviewed pH 7.33, pCO2 61, HCO3 31. Currently satting 92% on 6L. Chest x-ray concerning for basilar consolidation vs PNA. Pt was started on levaquin and pulm was consulted for further recs. will continue to monitor patient closely. Breathing treatments in place. Swati Waters MD Jul 23, 2017 12:24
[2017-07-23] MEDS: PCA - TOTAL MG MORPHINE DELIVERED PER SHIFT SCH ×2 (14:00→19:17)
[2017-07-23] MEDS: methylPREDNISolone SOD SUCC 40 MG/1 ML VIAL IV SCH ×2 (15:46→22:21)
--- NOTE | 2017-07-23 15:52 | MB ---
cc: DEMETRA SHANNON DATE OF CONSULTATION: 07/23/2017. REASON FOR CONSULTATION: Hypoxia and bibasilar lung infiltrates. HISTORY OF PRESENT ILLNESS: This is a 52-year-old white female with a prior history of muscular dystrophy who sustained fractures of the right ankle and the left toes following a recent fall. The patient was brought to the emergency room and apparently was sent for x-rays of the ankle which showed a displaced trimalleolar right ankle fracture. She also had a CTA of the chest which showed no pulmonary emboli and C-spine CT scan was negative. She was then seen by orthopedics and was taken for open reduction internal fixation of the right ankle fracture. The patient was hypoxic following admission requiring oxygen at 4 to 5 liters via nasal cannula and worse after surgery. She is now on an incentive spirometer and on nebulized bronchodilators and complains of some shortness of breath and cough but does not bring up much sputum. She is also on IV Levaquin. Denies hemoptysis. She has no leg or calf muscle pains. PAST MEDICAL HISTORY: Past history has included: 1. History for muscular dystrophy. 2. History of cervical cancer. 3. Removal of the cyst from the eye. 4. Cataract surgery. 5. D & C. 6. Appendectomy. ALLERGIES: NONE LISTED. FAMILY HISTORY: Noncontributory HABITS: The patient does not smoke. No history of alcohol use. REVIEW OF SYSTEMS: The patient has had weakness of her arms and legs due to muscular dystrophy since childhood. She has some blurriness of vision. She has a cough. She has wheezing. She has epigastric distress and abdominal pains. No urinary symptoms. She does have leg pain from her recent fracture and repair and toe pain on the left side from fracture of the toes. Denies skin rash. She has some anxiety. PHYSICAL EXAMINATION: GENERAL: This is an averagely built middle-aged white female who is in no acute distress. VITAL SIGNS: Her blood pressure is 140/80, pulse 90, respirations 20, temperature 98.2. HEAD, EYES, EARS, NOSE, THROAT: Head normocephalic. The pupils are reactive. Throat was clear. Nasal mucosa injected. NECK: The neck is supple. No bruits. No lymphadenopathy. CHEST: Equal movements with occasional basilar crackles and diffuse wheezes bilaterally. HEART: Heart sounds are regular. S1 and S2. No murmur. ABDOMEN: Abdomen soft and there is mild tenderness in the upper abdomen. The bowel sounds are active. No organomegaly. EXTREMITIES: The right leg is in a cast and dressing all the way from the foot up to the thighs. The left foot has bruising and ecchymosis of the toes. There is no peripheral edema. The patient does move her extremities but has some weakness of her extremities. NEUROLOGIC: Cranial nerves are grossly intact. RECTAL: Rectal exam is deferred. SKIN: No lesions. IMPRESSION: 1. Bibasilar atelectasis with hypoxemia. 2. Probable early pneumonia 3. Right ankle fracture status post open reduction internal fixation of ankle fracture. 4. Fractured toes. 5. Hypoxemia. PLAN: 1. The patient will be continued on antibiotic coverage including Levaquin 750 milligrams IV daily and will also be placed on Rocephin 1 gram IV daily, nebulized DuoNeb solution will be added four times a day. 2. We will use BiPAP at nights 12/5 and 35%. 3. Add Mucomyst solution with a nebulizer four times a day. 4. The patient will have a follow up chest x-ray done. 5. Sputum will be sent for Gram stain and culture. 6. Solu-Medrol 40 milligrams IV q.8 h was added. 7. Incentive spirometry as ordered. 8. We will give the nebs with the EzPAP treatment. 9. CBC to be done in the a.m. as well. Thank you for this consultation. MD ALMA DELIA Kelly/ALYCIA /2:49 PM /3:19 PM
[2017-07-23] MEDS: RESP: ACETYLCYSTEINE 20% 30 ML NEB NEB SCH ×2 (16:32→21:20)
[2017-07-23] MEDS: RESP: ALBUTEROL 2.5 MG/IPRATROPIUM 0.5 MG NEB (PRN) NEB (16:32)
[2017-07-23] MEDS: RESP: ALBUTEROL 2.5 MG/IPRATROPIUM 0.5 MG NEB (SCH) NEB (21:20)
[2017-07-24] VITALS (8 sets, daily range): BP systolic 119–140; BP diastolic 76–97; PULSE 76–114; RESP 14–18; TEMP 96.6–98; O2SAT 90–98
[2017-07-24] MEDS: LACTATED RINGER'S 1000 ML INJ 1,000 ML IV SCH ×3 (03:04→20:24)
[2017-07-24] MEDS: RESP: ACETYLCYSTEINE 20% 30 ML NEB NEB SCH ×4 (03:42→19:50)
[2017-07-24] MEDS: PCA - TOTAL MG MORPHINE DELIVERED PER SHIFT SCH ×4 (04:45→22:40)
[2017-07-24 06:18] LABS: AUTOMATED NEUTROPHIL # 4.8 TH/MM3 (1.8-7.7); BASOPHIL % 0.2 % (0.0-2.0); HEMATOCRIT 38.8 % (35.0-46.0); LYMPH % 12.3 % (9.0-44.0); LYMPHOCYTE # 0.7 TH/MM3 (1.0-4.8); MEAN CORPUSCULAR HEMOGLOBIN 31.6 PG (27.0-34.0); MEAN CORPUSCULAR HGB CONC 33.6 % (32.0-36.0); MEAN PLATELET VOLUME 7.4 FL (7.0-11.0); MONO % 2.3 % (0.0-8.0); MONOCYTE # 0.1 TH/MM3 (0-0.9); NEUT % 85.2 % (16.0-70.0); PLATELET COUNT 218 TH/MM3 (150-450); RED BLOOD COUNT 4.12 MIL/MM3 (4.00-5.30); RED CELL DISTRIBUTION WIDTH 13.2 % (11.6-17.2); WHITE BLOOD COUNT 5.6 TH/MM3 (4.0-11.0)
[2017-07-24 06:39] LABS: BICARBONATE 32.6 MEQ/L (21.0-32.0); CALCIUM 9.5 MG/DL (8.5-10.1); CREATININE 0.66 MG/DL (0.50-1.00)
--- NOTE | 2017-07-24 08:34 | HHI.PR ---
Subjective Remarks Pt feels ok, breathing is about the same. She didn't want the bipap overnight. no nausea or vomiting. discussed w RN, no concerns at this time. Objective Vitals Vital Signs Date Time Temp Pulse Resp B/P (MAP) Pulse Ox O2 Delivery O2 Flow Rate FiO2 07/24/17 04:00 98.0 76 18 122/78 (93) 95 07/24/17 00:00 97.8 102 18 140/82 (101) 91 07/23/17 22:20 Nasal Cannula 6.00 Humidified 07/23/17 20:00 97.3 104 20 147/84 (105) 92 07/23/17 16:32 99 Nasal Cannula 6.00 07/23/17 15:00 97.1 96 19 125/81 (96) 92 07/23/17 11:35 96.5 85 19 145/84 (104) 92 07/23/17 09:01 89 Nasal Cannula 6.00 07/23/17 08:50 89 Nasal Cannula 6.00 I/O 07/23/17 07/23/17 07/23/17 07/24/17 07/24/17 07/24/17 07:00 15:00 23:00 07:00 15:00 23:00 Intake Total 460 ml 1110 ml 220 ml 200 ml Output Total 750 ml Balance 460 ml 1110 ml 220 ml -550 ml Intake Oral 360 ml 960 ml 120 ml 200 ml IV Total 100 ml 150 ml 100 ml Output Urine Total 750 ml # Voids 2 3 5 # Bowel Movements 0 0 0 0 Result Diagram: 07/24/17 0547 07/24/17 0547 Imaging Last Impressions Chest X-Ray 07/23/17 0000 Signed Impressions: Service Date/Time: Sunday, July 23, 2017 09:32 - CONCLUSION: Elevated hemidiaphragms with suspected atelectasis or consolidation at the bases. Renato Silvestre MD Ankle X-Ray 07/21/17 0000 Signed Impressions: Service Date/Time: Friday, July 21, 2017 16:22 - CONCLUSION: 1. Status post right ankle ORIF, as above. Souleymane Escalante MD Pelvis X-Ray 07/20/17 1928 Signed Impressions: Service Date/Time: June 19:56 - CONCLUSION: Unremarkable examination of the pelvis. Renato De Jesus MD Head CT 07/20/171927 Signed Impressions: Service Date/Time: June 21:41 - CONCLUSION: No acute intracranial injury Renato De Jesus MD Foot X-Ray 07/20/171927 Signed Impressions: Service Date/Time: June 20:04 - CONCLUSION: Ankle fracture. No evidence of acute bony injury in the foot Renato De Jesus MD Cervical Spine CT 07/20/171927 Signed Impressions: Service Date/Time: June 21:41 - CONCLUSION: No acute bony injury in the cervical spine. Renato De Jesus MD CT Angiography 07/20/171927 Signed Impressions: Service Date/Time: June 21:45 - CONCLUSION: No evidence of pulmonary embolism Renato De Jesus MD Objective Remarks GENERAL: Pleasant middle-aged female, appears tired. HEENT: EOMI. CARDIOVASCULAR: Regular rate and rhythm. RESPIRATORY: decreased breath sounds. no obvious crackles or wheezing. GASTROINTESTINAL: Abdomen soft, non-tender, nondistended. BS normal. MUSCULOSKELETAL: dressing on the right lower extremity, ortho shoe on the right. NEUROLOGICAL: Awake and alert. moves upper extremities w no difficulties A/P Problem List: (1) Fall ICD Code: W19.XXXA - Unspecified fall, initial encounter (2) Ankle fracture, right ICD Code: S82.891A - Other fracture of right lower leg, initial encounter for closed fracture (3) Toes fractured ICD Code: S92.919A - Unspecified fracture of unspecified toe(s), initial encounter for closed fracture (4) Muscular dystrophy ICD Code: G71.0 - Muscular dystrophy (5) Leukocytosis ICD Code: D72.829 - Elevated white blood cell count, unspecified Assessment and Plan 1. Fall: s/p mechanical fall while walking to bathroom, not using walker. No LOC or head trauma reported. CT Head/C-Spine w/ no acute findings 2. Hypoxia: Pt stable today, Chest x-ray concerning for atelectasis vs consolidation. On levaquin and rocephin. Encourage use of IS q1hr while awake. Add acapella. Pulm following and also added steroids. has scheduled duonebs and prn. BiPAP and EZpap. however pt not wanting to use the bipap. Currently on 6L NC 3. Muscular Dystrophy: difficulty w/ ambulation, chronic, uses walker at baseline. Analgesics/antispasmodics as needed, avoid IV pain meds and see how pt does w just po in anticipation for discharge. PT recommending rehab 4. Right Ankle Fx: secondary to fall. Foot x-ray w/ trimalleolar ankle fracture. Ortho following and pt is s/p right ankle ORIF, NWB, f/u w Dr. Jones in 3 weeks. ASA 81 mg po BID for dvt proph, needs wheelchair. analgesics as needed. 5. Toe Fx: Left 3-5th toe fractures on X-ray. Nonoperative treatment of her left forefoot condition per Ortho. 6. Hypernatremia: resolved 7. Hyperkalemia: resolved 8. DVT Prophylaxis: Anticoagulation post op per ortho sx Discharge Planning Pt will be discharged to rehab when medically more stable. pulm following. encourage out of bed to chair 2-3 times daily Swati Waters MD Jul 24, 2017 08:34
[2017-07-24] MEDS: RESP: ALBUTEROL 2.5 MG/IPRATROPIUM 0.5 MG NEB (SCH) NEB ×3 (08:56→19:49)
[2017-07-24] MEDS: methylPREDNISolone SOD SUCC 40 MG/1 ML VIAL IV SCH ×3 (09:16→20:24)
[2017-07-24] MEDS: LEVOFLOXACIN 750 MG PREMIX INJ 150 ML IV SCH (09:16)
[2017-07-24] MEDS: SODIUM CHLORIDE 0.9% FLUSH 10 ML FLUSH IV FLUSH SCH ×2 (09:17→20:24)
[2017-07-24] MEDS: MULTIVITAMINS/MINERALS THERAPEUTIC TAB PO SCH (09:17)
[2017-07-24] MEDS: DOCUSATE SODIUM 50 MG/SENNA 8.6 MG TAB PO SCH ×2 (09:17→20:24)
[2017-07-24] MEDS: ASPIRIN 81 MG CHEW TAB CHEW SCH ×2 (09:17→20:23)
[2017-07-24] MEDS: CALCIUM/VITAMIN D 250 MG/125 U TAB PO SCH ×3 (09:17→17:10)
[2017-07-24] MEDS ORDERED: COMMODE 3-IN-11 MIS (13:55)
[2017-07-24] MEDS ORDERED: WHEEMIS3 (13:56)
--- NOTE | 2017-07-24 14:00 | PD.ORT.PN ---
Subjective Post Op Day #: 3 Subjective Remarks Postop day 3 right ankle ORIF Patient is sitting upright in a chair. She states she does feel ready for discharge to home once she has appropriate DME equipment. Pain is well- controlled at this time. Objective Vitals Vital Signs Date Time Temp Pulse Resp B/P (MAP) Pulse Ox O2 Delivery O2 Flow Rate FiO2 07/24/17 12:00 96.6 97 17 119/76 (90) 98 07/24/17 09:03 93 Nasal Cannula 6.00 07/24/17 08:00 97.8 89 17 126/97 (107) 90 07/24/17 04:00 98.0 76 18 122/78 (93) 95 07/24/17 00:00 97.8 102 18 140/82 (101) 91 07/23/17 22:20 Nasal Cannula 6.00 Humidified 07/23/17 20:00 97.3 104 20 147/84 (105) 92 07/23/17 16:32 99 Nasal Cannula 6.00 07/23/17 15:00 97.1 96 19 125/81 (96) 92 I/O 07/23/17 07/23/17 07/23/17 07/24/17 07/24/17 07/24/17 07:00 15:00 23:00 07:00 15:00 23:00 Intake Total 460 ml 1110 ml 220 ml 200 ml Output Total 750 ml Balance 460 ml 1110 ml 220 ml -550 ml Intake Oral 360 ml 960 ml 120 ml 200 ml IV Total 100 ml 150 ml 100 ml Output Urine Total 750 ml # Voids 2 3 5 # Bowel Movements 0 0 0 0 Result Diagram: 07/24/17 0547 07/24/17 0547 Imaging Last 24 hours Impressions Pelvis X-Ray 07/20/171927 Signed Impressions: Service Date/Time: June 19:56 - CONCLUSION: Unremarkable examination of the pelvis. Renato De Jesus MD Head CT 07/20/171927 Signed Impressions: Service Date/Time: June 21:41 - CONCLUSION: No acute intracranial injury Renato De Jesus MD Foot X-Ray 07/20/171927 Signed Impressions: Service Date/Time: June 20:04 - CONCLUSION: Ankle fracture. No evidence of acute bony injury in the foot Renato De Jesus MD Foot X-Ray 07/20/171927 Signed Impressions: Service Date/Time: June 20:04 - CONCLUSION: Left third through fifth toe fractures as described. Renato De Jesus MD Chest X-Ray 07/20/171927 Signed Impressions: Service Date/Time: June 19:54 - CONCLUSION: Diminished lung volumes. Renato De Jesus MD Cervical Spine CT 07/20/171927 Signed Impressions: Service Date/Time: , July 20, 2017 21:41 - CONCLUSION: No acute bony injury in the cervical spine. Renato De Jesus MD CT Angiography 07/20/171927 Signed Impressions: Service Date/Time: , July 20, 2017 21:45 - CONCLUSION: No evidence of pulmonary embolism Renato De Jesus MD Ankle X-Ray 07/20/171927 Signed Impressions: Service Date/Time: June 20:01 - CONCLUSION: Mildly displaced trimalleolar right ankle fracture Renato De Jesus MD Procedures 07/[address] Zak Jones Objective Remarks in bed, nad splint RLE intact, cap refill, nvi L foot ecchymosis, nvi, mild swelling Assessment & Plan Ortho Post Op Day #: 3 Problem List: (1) Ankle fracture, right ICD Codes: S82.891A - Other fracture of right lower leg, initial encounter for closed fracture Qualifiers: Qualified Codes: S82.891A - Other fracture of right lower leg, initial encounter for closed fracture (2) Muscular dystrophy ICD Codes: G71.0 - Muscular dystrophy Assessment and Plan Fracture right ankle, trimalleolar. Fracture left forefoot, proximal phalanx third, fourth, fifth toe. Surgery: ORIF right ankle with lateral malleolar plate and screws and medial malleolus cannulated screws PLAN: Ortho stable Aspirin 81 mg twice a day for 30 days for DVT chemical prophylaxis. [place] 7.5 for pain medications. NWB RLE, protected WB with post-op shoe LLE Preoperative muscular dystrophy leads to preoperative significant weakness. Nonweightbearing right leg after surgery. She will likely be in a wheelchair. No dressing changes and leave and current dressing/splint. Follow-up in 3 weeks Clear for discharge from orthopedic standpoint. Appropriate DME ordered although patient states she may have it at home. Would recommend discharge with home health care for PT/OT Citlali Sheets Jul 24, 2017 14:00
--- NOTE | 2017-07-24 17:07 | HHI.PR ---
Subjective Remarks C/O SOB . cough. No chest pain. On O2 4 L. Refused BIPAP last PM Objective Vital Signs Date Time Temp Pulse Resp B/P (MAP) Pulse Ox O2 Delivery O2 Flow Rate FiO2 07/24/17 12:00 96.6 97 17 119/76 (90) 98 07/24/17 09:03 93 Nasal Cannula 6.00 07/24/17 08:00 97.8 89 17 126/97 (107) 90 07/24/17 04:00 98.0 76 18 122/78 (93) 95 07/24/17 00:00 97.8 102 18 140/82 (101) 91 07/23/17 22:20 Nasal Cannula 6.00 Humidified 07/23/17 20:00 97.3 104 20 147/84 (105) 92 I/O 07/23/17 07/23/17 07/23/17 07/24/17 07/24/17 07/24/17 07:00 15:00 23:00 07:00 15:00 23:00 Intake Total 460 ml 1110 ml 220 ml 200 ml Output Total 750 ml Balance 460 ml 1110 ml 220 ml -550 ml Intake Oral 360 ml 960 ml 120 ml 200 ml IV Total 100 ml 150 ml 100 ml Output Urine Total 750 ml # Voids 2 3 5 # Bowel Movements 0 0 0 0 1 Result Diagram: 07/24/17 0547 07/24/17 0547 Objective Remarks GENERAL: This is an averagely built middle-aged white female who is in no acute distress. HEAD, EYES, EARS, NOSE, THROAT: Head normocephalic. The pupils are reactive. Throat was clear. Nasal mucosa clear NECK: The neck is supple. No bruits. No lymphadenopathy. CHEST: Equal movements with occasional basilar crackles and diffuse wheezes bilaterally. HEART: Heart sounds are regular. S1 and S2. No murmur. ABDOMEN: Abdomen soft and there is mild tenderness in the upper abdomen. The bowel sounds are active. No organomegaly. EXTREMITIES: The right leg is in a cast and dressing all the way from the foot up to the thighs. The left foot has bruising and ecchymosis of the toes. There is no peripheral edema. The patient does move her extremities but has some weakness of her extremities. NEUROLOGIC: Cranial nerves are grossly intact. RECTAL: Rectal exam is deferred. SKIN: No lesions. Assessment and Plan Assessment and Plan IMPRESSION: 1. Bibasilar atelectasis with hypoxemia. 2. Probable early pneumonia 3. Right ankle fracture status post open reduction internal fixation of ankle fracture. 4. Fractured toes. 5. Hypoxemia. Plan : 1. Continue antibiotics as Ordered. 2. Wean O2 to Keep sat >92. 3. Nebs qid with Duoneb. 4. EZ PAP with Nebs qid. 5. BIPAP at HS 12/5 CM 6. Chest Xray in am 7. Continue solumedrol 40 mg BID Jackelyn Roberts MD Jul 24, 2017 17:07
[2017-07-25] VITALS (8 sets, daily range): BP systolic 110–131; BP diastolic 67–86; PULSE 76–102; RESP 15–19; TEMP 96.2–98.3; O2SAT 90–98
[2017-07-25] MEDS: ACETAMINOPHEN/HYDROcodone 325 MG/7.5 MG TAB PO PRN ×3 (02:11→18:01)
[2017-07-25] MEDS: RESP: ALBUTEROL 2.5 MG/IPRATROPIUM 0.5 MG NEB (PRN) NEB (02:47)
[2017-07-25] MEDS: RESP: ACETYLCYSTEINE 20% 30 ML NEB NEB SCH ×3 (02:47→21:08)
[2017-07-25 06:42] LABS: BICARBONATE 34.1 MEQ/L (21.0-32.0); CALCIUM 9.7 MG/DL (8.5-10.1); CREATININE 0.69 MG/DL (0.50-1.00)
--- NOTE | 2017-07-25 08:09 | PD.ORT.PN ---
Subjective Post Op Day #: 4 Subjective Remarks pain tolerable. ready to go to snf. Objective Vitals Vital Signs Date Time Temp Pulse Resp B/P (MAP) Pulse Ox O2 Delivery O2 Flow Rate FiO2 07/25/17 07:44 96.5 76 19 125/75 (92) 92 07/25/17 05:31 93 Nasal Cannula 4.00 Humidified 07/25/17 00:08 98.3 101 15 131/73 (92) 94 07/24/17 20:22 95 Nasal Cannula 6.00 07/24/17 20:05 96.8 99 14 130/80 (97) 95 07/24/17 19:50 95 Nasal Cannula 6.00 07/24/17 16:00 96.6 114 17 134/76 (95) 95 07/24/17 12:00 96.6 97 17 119/76 (90) 98 07/24/17 09:03 93 Nasal Cannula 6.00 I/O 07/24/17 07/24/17 07/24/17 07/25/17 07/25/17 07/25/17 07:00 15:00 23:00 07:00 15:00 23:00 Intake Total 200 ml 320 ml 800 ml Output Total 750 ml Balance -550 ml 320 ml 800 ml Intake Oral 200 ml 320 ml 800 ml Output Urine Total 750 ml # Voids 3 2 # Bowel Movements 0 3 Result Diagram: 07/24/17 0547 07/25/17 0550 Imaging Last 24 hours Impressions Pelvis X-Ray 07/20/171927 Signed Impressions: Service Date/Time: June 19:56 - CONCLUSION: Unremarkable examination of the pelvis. Renato De Jesus MD Head CT 07/20/171927 Signed Impressions: Service Date/Time: June 21:41 - CONCLUSION: No acute intracranial injury Renato De Jesus MD Foot X-Ray 07/20/171927 Signed Impressions: Service Date/Time: June 20:04 - CONCLUSION: Ankle fracture. No evidence of acute bony injury in the foot Renato De Jesus MD Foot X-Ray 07/20/171927 Signed Impressions: Service Date/Time: June 20:04 - CONCLUSION: Left third through fifth toe fractures as described. Renato De Jesus MD Chest X-Ray 07/20/171927 Signed Impressions: Service Date/Time: June 19:54 - CONCLUSION: Diminished lung volumes. Renato De Jesus MD Cervical Spine CT 07/20/171927 Signed Impressions: Service Date/Time: , July 20, 2017 21:41 - CONCLUSION: No acute bony injury in the cervical spine. Renato De Jesus MD CT Angiography 07/20/171927 Signed Impressions: Service Date/Time: , July 20, 2017 21:45 - CONCLUSION: No evidence of pulmonary embolism Renato De Jesus MD Ankle X-Ray 07/20/171927 Signed Impressions: Service Date/Time: June 20:01 - CONCLUSION: Mildly displaced trimalleolar right ankle fracture Renato De Jesus MD Procedures 07/[address] Zak Jones Objective Remarks in bed, nad splint RLE intact, cap refill, nvi L foot ecchymosis, nvi, mild swelling, neg homans Assessment & Plan Ortho Post Op Day #: 4 Problem List: (1) Ankle fracture, right ICD Codes: S82.891A - Other fracture of right lower leg, initial encounter for closed fracture Qualifiers: Qualified Codes: S82.891A - Other fracture of right lower leg, initial encounter for closed fracture (2) Muscular dystrophy ICD Codes: G71.0 - Muscular dystrophy Assessment and Plan Fracture right ankle, trimalleolar. Fracture left forefoot, proximal phalanx third, fourth, fifth toe. Surgery: ORIF right ankle with lateral malleolar plate and screws and medial malleolus cannulated screws PLAN: Ortho stable Aspirin 81 mg twice a day for 30 days for DVT chemical prophylaxis. [place] 7.5 for pain medications. NWB RLE, protected WB with post-op shoe LLE Preoperative muscular dystrophy leads to preoperative significant weakness. Nonweightbearing right leg after surgery. She will likely be in a wheelchair. No dressing changes and leave and current dressing/splint. Follow-up in 3 weeks Clear for discharge from orthopedic standpoint. Appropriate DME ordered although patient states she may have it at home. Matteo Salazar Jul 25, 2017 08:09
[2017-07-25] MEDS: RESP: ALBUTEROL 2.5 MG/IPRATROPIUM 0.5 MG NEB (SCH) NEB ×3 (08:37→21:09)
[2017-07-25] MEDS: DOCUSATE SODIUM 50 MG/SENNA 8.6 MG TAB PO SCH ×2 (09:00→20:58)
[2017-07-25] MEDS: methylPREDNISolone SOD SUCC 40 MG/1 ML VIAL IV SCH (09:27)
[2017-07-25] MEDS: CALCIUM/VITAMIN D 250 MG/125 U TAB PO SCH ×3 (09:27→18:01)
[2017-07-25] MEDS: MULTIVITAMINS/MINERALS THERAPEUTIC TAB PO SCH (09:27)
[2017-07-25] MEDS: ASPIRIN 81 MG CHEW TAB CHEW SCH ×2 (09:27→20:58)
[2017-07-25] MEDS: SODIUM CHLORIDE 0.9% FLUSH 10 ML FLUSH IV FLUSH SCH ×2 (09:32→20:59)
[2017-07-25] MEDS: LEVOFLOXACIN 750 MG PREMIX INJ 150 ML IV SCH (13:08)
[2017-07-25] MEDS: PCA - TOTAL MG MORPHINE DELIVERED PER SHIFT SCH ×3 (14:00→21:00)
--- NOTE | 2017-07-25 15:24 | HHI.PR ---
Subjective Remarks The patient said that her breathing was getting better. She said her pain was very well controlled. She said she would like to go to rehabilitation for a few days before going home. Discussed with nursing. Objective Vitals Vital Signs Date Time Temp Pulse Resp B/P (MAP) Pulse Ox O2 Delivery O2 Flow Rate FiO2 07/25/17 11:37 97.6 78 19 110/73 (85) 96 07/25/17 09:34 93 Nasal Cannula 4.00 07/25/17 07:44 96.5 76 19 125/75 (92) 92 07/25/17 07:35 Nasal Cannula 4.00 Humidified 07/25/17 05:31 93 Nasal Cannula 4.00 Humidified 07/25/17 00:08 98.3 101 15 131/73 (92) 94 07/24/17 20:22 95 Nasal Cannula 6.00 07/24/17 20:05 96.8 99 14 130/80 (97) 95 07/24/17 19:50 95 Nasal Cannula 6.00 07/24/17 16:00 96.6 114 17 134/76 (95) 95 I/O 07/24/17 07/24/17 07/24/17 07/25/17 07/25/17 07/25/17 07:00 15:00 23:00 07:00 15:00 23:00 Intake Total 200 ml 320 ml 800 ml 950 ml Output Total 750 ml Balance -550 ml 320 ml 800 ml 950 ml Intake Oral 200 ml 320 ml 800 ml 950 ml Output Urine Total 750 ml # Voids 3 2 1 # Bowel Movements 0 3 0 Result Diagram: 07/24/17 0547 07/25/17 0550 Imaging Last Impressions Chest X-Ray 07/23/17 0000 Signed Impressions: Service Date/Time: Sunday, July 23, 2017 09:32 - CONCLUSION: Elevated hemidiaphragms with suspected atelectasis or consolidation at the bases. Renato Silvestre MD Ankle X-Ray 07/21/17 0000 Signed Impressions: Service Date/Time: Friday, July 21, 2017 16:22 - CONCLUSION: 1. Status post right ankle ORIF, as above. Souleymane Escalante MD Pelvis X-Ray 07/20/17 1928 Signed Impressions: Service Date/Time: June 19:56 - CONCLUSION: Unremarkable examination of the pelvis. Renato De Jesus MD Head CT 07/20/171927 Signed Impressions: Service Date/Time: June 21:41 - CONCLUSION: No acute intracranial injury Renato De Jesus MD Foot X-Ray 07/20/171927 Signed Impressions: Service Date/Time: June 20:04 - CONCLUSION: Ankle fracture. No evidence of acute bony injury in the foot Renato De Jesus MD Cervical Spine CT 07/20/171927 Signed Impressions: Service Date/Time: June 21:41 - CONCLUSION: No acute bony injury in the cervical spine. Renato De Jesus MD CT Angiography 07/20/171927 Signed Impressions: Service Date/Time: June 21:45 - CONCLUSION: No evidence of pulmonary embolism Renato De Jesus MD Objective Remarks GENERAL: Pleasant middle-aged female in [facility]. HEENT: EOMI. CARDIOVASCULAR: Regular rate and rhythm. RESPIRATORY: No obvious crackles or wheezing. GASTROINTESTINAL: Abdomen soft, non-tender, nondistended. BS normal. MUSCULOSKELETAL: Dressing on the right lower extremity, ortho shoe on the right. NEUROLOGICAL: Awake and alert. Moves upper extremities with no difficulties. PSYCH: Mood and affect appropriate. Procedures Right ankle ORIF Medications and IVs Current Medications Medications (Trade) Dose Ordered Sig/Eric Route Start Time Stop Time Status Last Admin (NS Flush) 2 ml UNSCH PRN IV FLUSH 07/20/17 22:30 (NS Flush) 2 ml BID IV FLUSH 07/21/17 09:00 07/25/17 09:32 (Tylenol) 650 mg Q6H PRN PO 07/20/17 22:30 (Morphine Inj) 2 mg Q3H PRN IV PUSH 07/20/17 22:30 (Senokot) 17.2 mg Q12H PRN PO 07/20/17 22:30 (Dulcolax Supp) 10 mg DAILY PRN RECTAL 07/20/17 22:30 (Lactulose Liq) 30 ml DAILY PRN PO 07/20/17 22:30 07/24/17 09:17 Lactated Ringer's 1,000 ml @ 100 mls/hr Q10H IV 07/21/17 15:04 07/23/17 17:08 (Snehal-Colace) 1 tab BID PO 07/21/17 21:00 07/24/17 09:17 (Milk Of Magntelma Liq) 10 ml Q12H PRN PO 07/21/17 15:15 ([place] 7.5-325 Mg) 1 tab Q4H PRN PO 07/21/17 15:15 07/25/17 02:11 ([place] 7.5-325 Mg) 2 tab Q6H PRN PO 07/21/17 15:15 07/25/17 11:14 (Zofran Inj) 4 mg Q4H PRN IVP 07/21/17 15:15 (Oscal-D 250-125) 250 mg TID PO 07/21/17 18:00 07/25/17 13:08 (Theragran M Tab) 1 tab DAILY PO 07/22/17 09:00 07/25/17 09:27 (Benadryl) 25 mg Q6H PRN PO 07/21/17 15:15 (Narcan Inj) 0.4 mg UNSCH PRN IV PUSH 07/21/17 15:15 07/21/17 21:22 (Morphine 1 Mg/ ml CH[employer]STITCH [employer]TER) 30 mg UNSCH IV 07/21/17 17:00 07/21/17 19:02 CHAINSTITCH [employer]TER Dosage Infused (Pha) 1 Q8HR .XX 07/21/17 22:00 07/22/17 06:00 (Aspirin Chew) 81 mg BID CHEW 07/21/17 21:00 07/25/17 09:27 Levofloxacin/ Dextrose 150 ml @ 100 mls/hr Q24H IV 07/23/17 10:00 07/25/17 13:08 (Duoneb Neb) 1 ampule Q6HR NEB PRN NEB 07/23/17 10:15 07/25/17 02:47 (Mucomyst 20% Neb) 2 ml Q6HR NEB NEB 07/23/17 16:00 07/25/17 08:37 (Duoneb Neb) 1 ampule Q6HR WHILE AWAKE NEB NEB 07/23/17 20:00 07/25/17 14:12 A/P Problem List: (1) Fall ICD Code: W19.XXXA - Unspecified fall, initial encounter (2) Ankle fracture, right ICD Code: S82.891A - Other fracture of right lower leg, initial encounter for closed fracture (3) Toes fractured ICD Code: S92.919A - Unspecified fracture of unspecified toe(s), initial encounter for closed fracture (4) Muscular dystrophy ICD Code: G71.0 - Muscular dystrophy (5) Leukocytosis ICD Code: D72.829 - Elevated white blood cell count, unspecified Assessment and Plan 1. Fall: s/p mechanical fall while walking to bathroom, not using walker. No LOC or head trauma reported. CT Head/C-Spine w/ no acute findings 2. Hypoxia: Pt stable on 4LNC. Chest x-ray concerning for atelectasis vs consolidation. On IV Levaquin. Encourage use of IS q1hr while awake. Add acapella. Pulm following and also added steroids. Has scheduled Duonebs and prn. BiPAP and EZpap. however pt not wanting to use the Bipap. Wean steroids as tolerated. Repeat CXR /. 3. Muscular Dystrophy: difficulty w/ ambulation, chronic, uses walker at baseline. Analgesics/antispasmodics as needed, avoid IV pain meds and see how pt does w just po in anticipation for discharge. PT recommending rehab 4. Right Ankle Fx: secondary to fall. Foot x-ray w/ trimalleolar ankle fracture. Ortho following and pt is s/p right ankle ORIF, NWB, f/u w Dr. Jones in 2-3 weeks. ASA 81 mg po BID for dvt proph, needs wheelchair. Analgesics as needed. 5. Toe Fx: Left 3-5th toe fractures on X-ray. Nonoperative treatment of her left forefoot condition per Ortho. 6. Hypernatremia: resolved 7. Hyperkalemia: resolved 8. DVT Prophylaxis: Anticoagulation post op per ortho sx Discharge Planning Hopefully d/c to SNF in AM if respiratory status is stable Problem Qualifiers (1) Ankle fracture, right: Qualified Codes: S82.891A - Other fracture of right lower leg, initial encounter for closed fracture Sreekanth Dai DO Jul 25, 2017 15:24
--- NOTE | 2017-07-25 15:50 | RADRPT ---
EXAM DATE/TIME: 07/25/2017 15:17 [place] COMPARISON: CHEST SINGLE AP, July 23, 2017, 9:32. INDICATIONS : Short of breath. MEDICAL HISTORY : None. SURGICAL HISTORY : None. ENCOUNTER: Subsequent ACUITY: 4 - 6 days PAIN SCORE: 0/10 LOCATION: Bilateral chest FINDINGS: The heart is enlarged. There is a poor inspiratory result. Bibasilar atelectasis and/or infiltrates a re noted. CONCLUSION: 1. Poor inspiratory result. 2. Cardiomegaly. 3. Bibasilar atelectasis and/or infiltrates. Mariano Caldwell MD on July 25, 2017 at 15:46 Board Certified Radiologist. This report was verified electronically.
--- NOTE | 2017-07-25 20:23 | HHI.PR ---
Subjective Remarks C/O SOB . and less cough. No chest pain. On O2 3 L. Seems better . Needs Rehab. Refused BIPAP last PM Objective Vital Signs Date Time Temp Pulse Resp B/P (MAP) Pulse Ox O2 Delivery O2 Flow Rate FiO2 07/25/17 15:37 96.2 97 19 117/67 (84) 95 07/25/17 11:37 97.6 78 19 110/73 (85) 96 07/25/17 09:34 93 Nasal Cannula 4.00 07/25/17 07:44 96.5 76 19 125/75 (92) 92 07/25/17 07:35 Nasal Cannula 4.00 Humidified 07/25/17 05:31 93 Nasal Cannula 4.00 Humidified 07/25/17 00:08 98.3 101 15 131/73 (92) 94 07/24/17 20:22 95 Nasal Cannula 6.00 I/O 07/24/17 07/24/17 07/24/17 07/25/17 07/25/17 07/25/17 07:00 15:00 23:00 07:00 15:00 23:00 Intake Total 200 ml 320 ml 800 ml 950 ml Output Total 750 ml Balance -550 ml 320 ml 800 ml 950 ml Intake Oral 200 ml 320 ml 800 ml 950 ml Output Urine Total 750 ml # Voids 3 2 1 # Bowel Movements 0 3 0 Result Diagram: 07/24/17 0547 07/25/17 0550 Objective Remarks GENERAL: This is an averagely built middle-aged white female who is in no acute distress. HEAD, EYES, EARS, NOSE, THROAT: Head normocephalic. The pupils are reactive. Throat was clear. Nasal mucosa clear NECK: The neck is supple. No bruits. No lymphadenopathy. CHEST: Equal movements with few basilar crackles and wheezes bilaterally. HEART: Heart sounds are regular. S1 and S2. No murmur. ABDOMEN: Abdomen soft and there is mild tenderness in the upper abdomen. The bowel sounds are active. No organomegaly. EXTREMITIES: The right leg is in a cast and dressing all the way from the foot up to the thighs. The left foot has bruising and ecchymosis of the toes. There is no peripheral edema. The patient does move her extremities but has some weakness of her extremities. NEUROLOGIC: Cranial nerves are grossly intact. RECTAL: Rectal exam is deferred. SKIN: No lesions. Assessment and Plan Assessment and Plan IMPRESSION: 1. Bibasilar atelectasis with hypoxemia. 2. Probable early pneumonia 3. Right ankle fracture status post open reduction internal fixation of ankle fracture. 4. Fractured toes. 5. Hypoxemia. Plan : 1. Continue antibiotics as Ordered. 2. Wean O2 to 3 L. 3. Nebs qid with Duoneb. 4. EZ PAP with Nebs qid. 5. BIPAP at HS 12/5 CM if she agrees. 6. CBC in am 7. D/C solumedrol . 8. To rehab soon. Jackelyn Roberts MD Jul 25, 2017 20:23
[2017-07-26] MEDS: RESP: ACETYLCYSTEINE 20% 30 ML NEB NEB SCH ×2 (04:00→07:57)
[2017-07-26] MEDS: RESP: ALBUTEROL 2.5 MG/IPRATROPIUM 0.5 MG NEB (PRN) NEB (04:26)
[2017-07-26] MEDS: RESP: ALBUTEROL 2.5 MG/IPRATROPIUM 0.5 MG NEB (SCH) NEB (07:57)
[2017-07-26 08:00] VITALS: BP 138/95; PULSE 94; RESP 19; TEMP 96.4; O2SAT 92
[2017-07-26 08:01] VITALS: O2SAT 94
[2017-07-26] MEDS: SODIUM CHLORIDE 0.9% FLUSH 10 ML FLUSH IV FLUSH SCH (09:00)
[2017-07-26] MEDS: CALCIUM/VITAMIN D 250 MG/125 U TAB PO SCH ×2 (09:03→11:43)
[2017-07-26] MEDS: ASPIRIN 81 MG CHEW TAB CHEW SCH (09:03)
[2017-07-26] MEDS: MULTIVITAMINS/MINERALS THERAPEUTIC TAB PO SCH (09:03)
[2017-07-26] MEDS: DOCUSATE SODIUM 50 MG/SENNA 8.6 MG TAB PO SCH (09:03)
[2017-07-26] MEDS: LEVOFLOXACIN 750 MG PREMIX INJ 150 ML IV SCH (09:06)
--- NOTE | 2017-07-26 09:58 | HHI.DS ---
Discharge Summary Admission Date Jul 20, 2017 at 22:09 Discharge Date: Jul 26, 2017 Admitting Diagnosis right trimalleolar fx, left foot 3-5th digit fxs (1) Fall ICD Code: W19.XXXA - Unspecified fall, initial encounter Diagnosis: Principal (2) Ankle fracture, right ICD Code: S82.891A - Other fracture of right lower leg, initial encounter for closed fracture Diagnosis: Principal (3) Toes fractured ICD Code: S92.919A - Unspecified fracture of unspecified toe(s), initial encounter for closed fracture Diagnosis: Principal (4) Muscular dystrophy ICD Code: G71.0 - Muscular dystrophy (5) Leukocytosis ICD Code: D72.829 - Elevated white blood cell count, unspecified (6) Pneumonia ICD Code: J18.9 - Pneumonia, unspecified organism Diagnosis: Principal Procedures Right ankle ORIF Brief History - From Admission This is a 52-year-old female with a PMH of Muscular Dystrophy and Cervical CA who is brought to the ER by EMS secondary to right ankle pain after a fall. Pt states she was walking to the bathroom when her legs gave out, subsequent fall w / immediate complaints of right ankle pain, 8/10, constant, worse w/ movement. Also notes left toe pain. No head trauma or LOC reported. Normally ambulates with walker, however states she didn't use it this time. On arrival, BP 151/95 , HR 86, O2 sat 94% on 2L NC, Afebrile. WBC 11.1. GFR 66, previously 90 on 03/29. LFTs elevated, similar comparison to previous labs. Troponin negative. INR 1.0. UA negative. Ankle X-ray with mildly displaced trimalleolar right ankle fracture. CTA Pulm negative for PE. CT C-spine negative. CXR diminished lung volumes. Foot X-ray with left third through fifth toe fractures. Foot X-ray with ankle fracture. CT Head no acute findings. Pelvis X-ray unremarkable. CBC/BMP: 07/24/17 0547 07/25/17 0550 Significant Findings Laboratory Tests Test 07/23/17 10:02 07/24/17 05:47 07/25/17 05:50 Blood Gas HCO3 32 mmol/L (22-26) Blood Gas Base Excess 6.0 mmol/L (-2-2) Blood Gas Oxygen Saturation 88 % (90-100) Arterial Blood pH 7.33 (7.380-7.420) Arterial Blood Partial Pressure CO2 61 mmHg (38-42) Arterial Blood Partial Pressure O2 58 mmHg (61-120) Neutrophils (%) (Auto) 85.2 % (16.0-70.0) Lymphocytes # (Auto) 0.7 TH/MM3 (1.0-4.8) Random Glucose 159 MG/DL (74-106) 157 MG/DL (74-106) Carbon Dioxide Level 32.6 MEQ/L (21.0-32.0) 34.1 MEQ/L (21.0-32.0) Anion Gap 4 MEQ/L (5-15) 4 MEQ/L (5-15) Imaging Last Impressions Chest X-Ray 07/25/17 0000 Signed Impressions: Service Date/Time: Tuesday, July 25, 2017 15:17 - CONCLUSION: 1. Poor inspiratory result. 2. Cardiomegaly. 3. Bibasilar atelectasis and/or infiltrates. Mariano Caldwell MD Ankle X-Ray 07/21/17 0000 Signed Impressions: Service Date/Time: Friday, July 21, 2017 16:22 - CONCLUSION: 1. Status post right ankle ORIF, as above. Souleymane Escalante MD Pelvis X-Ray 07/20/171927 Signed Impressions: Service Date/Time: June 19:56 - CONCLUSION: Unremarkable examination of the pelvis. Renato De Jesus MD Head CT 07/20/171927 Signed Impressions: Service Date/Time: June 21:41 - CONCLUSION: No acute intracranial injury Renato De Jesus MD Foot X-Ray 07/20/171927 Signed Impressions: Service Date/Time: June 20:04 - CONCLUSION: Ankle fracture. No evidence of acute bony injury in the foot Renato De Jesus MD Cervical Spine CT 07/20/171927 Signed Impressions: Service Date/Time: June 21:41 - CONCLUSION: No acute bony injury in the cervical spine. Renato De Jesus MD CT Angiography 07/20/171927 Signed Impressions: Service Date/Time: June 21:45 - CONCLUSION: No evidence of pulmonary embolism Renato De Jesus MD PE at Discharge GENERAL: Pleasant middle-aged female in NAD. HEENT: EOMI. CARDIOVASCULAR: Regular rate and rhythm. RESPIRATORY: No obvious crackles or wheezing. GASTROINTESTINAL: Abdomen soft, non-tender, nondistended. BS normal. MUSCULOSKELETAL: Dressing on the right lower extremity, ortho shoe on the right. NEUROLOGICAL: Awake and alert. Moves upper extremities with no difficulties. PSYCH: Mood and affect appropriate. Pt update on day of discharge The patient was about to work with physical therapy. She had no acute complaints. She didn't want any inhalers. She said she believed the oxygen could be decreased. Discussed with nursing. Hospital Course Fall S/p mechanical fall while walking to bathroom, not using walker. No LOC or head trauma reported. CT Head/C-Spine w/ no acute findings. Foot x-ray w/ trimalleolar ankle fracture. Left 3-5th toe fractures were noted on X-ray. Orthopedic surgery was consulted and recommended nonoperative treatment of her left forefoot condition. The pt is s/p right ankle ORIF by orthopedic surgery. The pt is NWB to that extremity. She will follow up with Dr. Jones in 2 weeks. The pt will be discharged on ASA and pain medications per ortho. She worked with PT and case management assisted with SNF placement. Hypoxemia Chest x-ray concerning for atelectasis vs consolidation. She was started on IV Levaquin. We encouraged use of IS q1hr while awake. We added acapella. Pulmonology was consulted. Steroids were added. She received scheduled Duonebs and prn. BiPAP and EZpap were started. however pt not wanting to use the Bipap. Steroids were weaned to prednisone. She will be discharged with an albuterol inhaler. She will follow up with pulmonology as an outpt. Pt Condition on Discharge: Stable Discharge Disposition: Discharge to SNF Discharge Time: > 30 minutes Discharge Instructions Follow up Referrals: Orthopedics - 2 Weeks [facility] with Zak Jones MD PCP Follow-up - 1 Week Pulmonology - 1 Week with Jackelyn Roberts MD New Medications: Albuterol 8.5 GM Inh (Proair Hfa 8.5 GM Inh) 90 Mcg/Act Aer 2 PUFF INH Q4-6H PRN for SHORTNESS OF BREATH, #1 INHALER 0 Refills 108 mcg/actuation Commode 3-in-1 (Commode 3-in-1) 1 Mis Mis EA .ROUTE DIRECTED, #1 0 Refills Levofloxacin (Levaquin) 750 Mg Tablet 750 MG PO DAILY for Infection, #4 TAB 0 Refills Prednisone (Prednisone) 20 Mg Tab 20 MG PO DAILY for Breathing for 3 Days, #3 TAB 0 Refills Wheelchair Elevated Leg (Wheelchair Elevated Leg) 1 Mis Mis EA .ROUTE DIRECTED, #1 0 Refills Aspirin (Tgt Aspirin) 81 Mg Chw 81 MG CHEW BID for Prevent Blood Clot for 30 Days, EA Hydrocodone/Acetaminophen (Hydrocodone-Acetamin 7.5-325) 7.5 Mg-325 Mg Tablet 1 TAB PO Q4H PRN for PAIN, #50 TAB Sreekanth Dai DO Jul 26, 2017 09:58
[2017-07-26] MEDS ORDERED: LEVA750T9 PO (10:01)
[2017-07-26] MEDS ORDERED: PRED20 PO (10:01)
--- NOTE | 2017-07-26 10:02 | HHI.DCPOC ---
Discharge Care Plan Diagnosis: (1) Ankle fracture, right (2) Muscular dystrophy (3) Toes fractured (4) Fall (5) Pneumonia Goals to Promote Your Health * To prevent worsening of your condition and complications * To maintain your health at the optimal level Directions to Meet Your Goals Take your medications as prescribed Follow your dietary instruction Follow activity as directed Keep your appointments as scheduled Take your immunizations and boosters as scheduled If your symptoms worsen call your PCP, if no PCP go to Urgent Care Center or Emergency Room Smoking is Dangerous to Your Health. Avoid second hand smoke Call the 24-hour hour crisis hotline for domestic abuse at Sreekanth Dai DO Jul 26, 2017 10:02
[2017-07-26] MEDS ORDERED: ALBUAER3 INH (10:09)
[2017-07-26] MEDS: ACETAMINOPHEN/HYDROcodone 325 MG/7.5 MG TAB PO PRN (11:43)
== END 2017-07-26 12:29 | DRG 492 ==
LOC: NEPE 19:01 → NEDA 22:09 → N06A 22:51
PROVIDERS: ADMIT Hospitalist; ATTEND Hospitalist
PROC: 0QSG04Z Reposition Right Tibia with Internal Fixation Device, Open Approach (ICD-10-PCS; 2017-07-21)
PROC: 0QSJ04Z Reposition Right Fibula with Internal Fixation Device, Open Approach (ICD-10-PCS; principal; 2017-07-21 14:53)
DX: S82.851A Displaced trimalleolar fracture of right lower leg, initial encounter for closed fracture (principal); J18.9 Pneumonia, unspecified organism; G71.0 Muscular dystrophy; E87.0 Hyperosmolality and hypernatremia; J98.11 Atelectasis; G93.89 Other specified disorders of brain; S92.502A Displaced unspecified fracture of left lesser toe(s), initial encounter for closed fracture; T40.2X5A Adverse effect of other opioids, initial encounter; R09.02 Hypoxemia; E87.5 Hyperkalemia; W18.30XA Fall on same level, unspecified, initial encounter; Y93.01 Activity, walking, marching and hiking; Z85.41 Personal history of malignant neoplasm of cervix uteri
CPT/HCPCS: 36600; 70450; 71010; 71045; 71275; 72125; 72170; 73600; 73610; 73620; 73630; 76000; 80048; 80053; 81001; 82550; 82552; 82805; 83690; 83735; 83880; 84132; 84484; 85014; 85018; 85025; 85610; 85730; 93005; 94150; 94640; 94664; 94667; 94668; C1713; J0690; J1100; J1580; J1956; J2270; J2310; J2370; J2405; J2920; J3010; J7030; J7120; J7608; L3260; Q9967